=== PATIENT | male | born 1945 | race Caucasian/White ===

== ENCOUNTER 2022-08-01 23:10 | Emergency (ER) | payer MEDICARE, MEDICAID ==
[~2022-08-01] VITALS: Ht 165.1 cm; Wt 68.5 kg
[2022-08-01 23:13] VITALS: BP 138/83
[2022-08-02 01:59] LABS: VENOUS BASE EXCESS 0.4 (-2.0-2.0); VENOUS O2 SATURATION 61.6 % (60.0-80.0); VENOUS PARTIAL PRESSURE CO2 45.2 mmHg (38.0-50.0); VENOUS PARTIAL PRESSURE O2 31.8 mmHg (30.0-50.0); VENOUS PH 7.378 UNITS (7.330-7.430); VENOUS STANDARD HCO3 23.9 MEQ/L; VENOUS TOTAL CO2 27.4 MEQ/L (24.0-28.0)
[2022-08-02 02:18] LABS: BASO # 0.1 10^3/uL (0.0-0.2); BASO % 0.6 % (0.0-1.0); EOS # 0.1 10^3/uL (0.0-0.5); HEMOGLOBIN 14.9 g/dl (13.5-17.5); LYMPH # 1.2 10^3/uL (1.5-5.0); LYMPH % 13.2 % (24.0-44.0); MEAN CORPUSCULAR HEMOGLOBIN 33.1 pg (27.0-33.0); MEAN CORPUSCULAR HGB CONC 34.7 g/dl (32.0-36.5); MEAN CORPUSCULAR VOLUME 95.6 fl (80.0-96.0); MONO # 0.7 10^3/uL (0.0-0.8); MONO % 7.8 % (2.0-8.0); NEUTROPHILS # 7.2 10^3/uL (1.5-8.5); NEUTROPHILS % 77.2 % (36.0-66.0); PLATELET COUNT, AUTOMATED 232 10^3/uL (150-450); WHITE BLOOD COUNT 9.3 10^3/uL (4.0-10.0)
[2022-08-02 02:29] LABS: AMPHETAMINES LEVEL URINE NEGATIVE (NEGATIVE); CANNABINOIDS URINE NEGATIVE (NEGATIVE); METHADONE URINE NEGATIVE (NEGATIVE); OPIATES URINE NEGATIVE (NEGATIVE); PHENCYCLIDINE URINE NEGATIVE (NEGATIVE)
[2022-08-02 02:30] LABS: BARBITURATES URINE NEGATIVE (NEGATIVE); BENZODIAZEPINES URINE NEGATIVE (NEGATIVE); COCAINE METABOLITE URINE NEGATIVE (NEGATIVE)
[2022-08-02 02:31] LABS: ETHYL ALCOHOL (ETHANOL) < 0.003 % (0.000-0.010)
[2022-08-02 02:32] LABS: ACETAMINOPHEN LEVEL < 2.0 UG/ML (10.0-20.0)
[2022-08-02 02:33] LABS: CPK CREATINE PHOSPHOKINASE 528 U/L (46-171); SALICYLATE LEVEL < 3.0 MG/DL (<30)
[2022-08-02 02:36] LABS: OSMOLALITY SERUM 296 MOSM/KG (280-301)
[2022-08-02 02:37] LABS: ALBUMIN 3.7 G/DL (3.2-5.2); ALKALINE PHOSPHATASE 76 U/L (46-116); ALT/SGPT 36 U/L (7.0-40); AST/SGOT 52 U/L (<34); BILIRUBIN,DIRECT 0.2 MG/DL (<0.4); BILIRUBIN,TOTAL 0.9 MG/DL (0.3-1.2); BLOOD UREA NITROGEN 29 MG/DL (9-23); CARBON DIOXIDE LEVEL 28 MMOL/L (20-31); CHLORIDE LEVEL 103 MMOL/L (98-107); CREATININE FOR GFR 0.87 MG/DL (0.70-1.30); GLOMERULAR FILTRATION RATE > 60.0 (>42); GLUCOSE, FASTING 98 MG/DL (74-106); POTASSIUM SERUM 4.6 MMOL/L (3.5-5.1); SODIUM LEVEL 139 MMOL/L (136-145)
[2022-08-02 06:23] LABS: FREE T4 1.19 NG/DL (0.89-1.76)
== END 2022-08-02 06:00 | disposition home or self-care (01) ==
LOC: M ED 23:10
DX: R25.1 Tremor, unspecified (principal); F41.8 Other specified anxiety disorders; J30.89 Other allergic rhinitis

== ENCOUNTER 2022-08-03 07:44 | Inpatient (IN) | payer MEDICARE, MEDICAID ==
[~2022-08-03] VITALS: Ht 175.3 cm; Wt 67.9 kg
[2022-08-03 09:38] LABS: HEMATOCRIT 43.2 % (42.0-52.0); HEMOGLOBIN 14.8 g/dl (13.5-17.5); MEAN CORPUSCULAR HGB CONC 34.3 g/dl (32.0-36.5); MEAN CORPUSCULAR VOLUME 96.2 fl (80.0-96.0); PLATELET COUNT, AUTOMATED 237 10^3/uL (150-450); RED BLOOD COUNT 4.49 10^6/uL (4.30-6.10); WHITE BLOOD COUNT 5.6 10^3/uL (4.0-10.0)
[2022-08-03 09:58] LABS: ETHYL ALCOHOL (ETHANOL) < 0.003 % (0.000-0.010)
[2022-08-03 09:59] LABS: CK-MB VALUE MASS 7.3 NG/ML (<3.6)
[2022-08-03 10:00] LABS: ACETAMINOPHEN LEVEL < 2.0 UG/ML (10.0-20.0); ALBUMIN 3.7 G/DL (3.2-5.2); ALKALINE PHOSPHATASE 73 U/L (46-116); ALT/SGPT 38 U/L (7.0-40); AST/SGOT 52 U/L (<34); BILIRUBIN,TOTAL 0.9 MG/DL (0.3-1.2); BLOOD UREA NITROGEN 25 MG/DL (9-23); CARBON DIOXIDE LEVEL 26 MMOL/L (20-31); CHLORIDE LEVEL 103 MMOL/L (98-107); CREATININE FOR GFR 0.83 MG/DL (0.70-1.30); GLOMERULAR FILTRATION RATE > 60.0 (>42); GLUCOSE, FASTING 102 MG/DL (74-106); POTASSIUM SERUM 4.1 MMOL/L (3.5-5.1); SALICYLATE LEVEL < 3.0 MG/DL (<30); SODIUM LEVEL 137 MMOL/L (136-145); TOTAL PROTEIN 6.9 G/DL (5.7-8.2)
[2022-08-03 10:01] LABS: CPK CREATINE PHOSPHOKINASE 471 U/L (46-171); MB/CK RELATIVE INDEX 1.54 (< OR =4)
[2022-08-03 10:02] LABS: THYROID STIMULATING HORMONE 8.215 uIU/ML (0.55-4.78)
[2022-08-03 10:09] LABS: AMPHETAMINES LEVEL URINE NEGATIVE (NEGATIVE); BARBITURATES URINE NEGATIVE (NEGATIVE); BENZODIAZEPINES URINE NEGATIVE (NEGATIVE); CANNABINOIDS URINE NEGATIVE (NEGATIVE); COCAINE METABOLITE URINE NEGATIVE (NEGATIVE); METHADONE URINE NEGATIVE (NEGATIVE); OPIATES URINE NEGATIVE (NEGATIVE); PHENCYCLIDINE URINE NEGATIVE (NEGATIVE)
[2022-08-03] MEDS ORDERED: NS 1,000 ML IV ONE (10:30)
[2022-08-03] MEDS ORDERED: MAALOX 30 ML SUSP *UDC PO PRN (14:35)
[2022-08-03] MEDS ORDERED: traZODone 50 MG TAB PO PRN (14:35)
[2022-08-03] MEDS ORDERED: MOM 30ML SUSPENSION UDC PO PRN (14:35)
[2022-08-03] MEDS ORDERED: ACETAMINOPHEN TAB 650MG DOSE (2X325MG) PO PRN (14:35)
[2022-08-03] MEDS ORDERED: CLOTRIMAZOLE 1% TOPICAL CREAM 30GM TOP SCH (16:00)
[2022-08-03 17:30] VITALS: BP 112/71
[2022-08-03] MEDS ORDERED: OLANZapine 5 MG TAB PO ONE (21:00)
[2022-08-04 06:17] VITALS: BP 130/82
[2022-08-04] MEDS: OLANZapine ORAL DISINTEGRATING TAB 5MG PO PRN (07:45)
[2022-08-05 06:38] VITALS: BP 128/89
[2022-08-05] MEDS: SERTRALINE HCL 25 MG TABLET PO SCH (09:27)
[2022-08-05] MEDS ORDERED: VITA100093 PO (09:41)
[2022-08-05] MEDS ORDERED: CO Q10CA PO (09:41)
[2022-08-05] MEDS ORDERED: C 50TAB PO (09:41)
[2022-08-05] MEDS ORDERED: VITATAB73 PO (09:41)
[2022-08-05] MEDS ORDERED: HOME MED LIST COMPLETE! XX SCH (09:45)
[2022-08-05 17:46] VITALS: BP 131/78
[2022-08-05] MEDS: OLANZapine 2.5MG TABLET PO SCH ×2 (22:02→22:12)
[2022-08-06] MEDS: SERTRALINE HCL 25 MG TABLET PO SCH (10:12)
[2022-08-06] MEDS: OLANZapine ORAL DISINTEGRATING TAB 5MG PO PRN (16:40)
[2022-08-06 18:03] VITALS: BP 118/74
[2022-08-06] MEDS: OLANZapine 2.5MG TABLET PO SCH (21:38)
[2022-08-07 06:23] VITALS: BP 138/87
[2022-08-07] MEDS: SERTRALINE HCL 50 MG TAB PO SCH (10:27)
[2022-08-07 17:54] VITALS: BP 119/78
[2022-08-07] MEDS: OLANZapine 5 MG TAB PO SCH (21:01)
[2022-08-07] MEDS: traZODone 50 MG TAB PO SCH (21:01)
[2022-08-08 06:25] VITALS: BP 134/74
[2022-08-08] MEDS: SERTRALINE HCL 50 MG TAB PO SCH (08:58)
[2022-08-08 18:11] VITALS: BP 126/69
[2022-08-08] MEDS: OLANZapine 5 MG TAB PO SCH (20:26)
[2022-08-08] MEDS: traZODone 50 MG TAB PO SCH (20:26)
[2022-08-09 06:37] VITALS: BP 141/91
[2022-08-09] MEDS: SERTRALINE HCL 50 MG TAB PO SCH (09:40)
[2022-08-09 18:50] VITALS: BP 150/87
[2022-08-09] MEDS: OLANZapine 5 MG TAB PO SCH (23:19)
[2022-08-09] MEDS: traZODone 50 MG TAB PO SCH (23:19)
[2022-08-10 06:44] VITALS: BP 136/90
[2022-08-10] MEDS: SERTRALINE HCL 50 MG TAB PO SCH (09:30)
[2022-08-10 18:47] VITALS: BP 146/83
[2022-08-10] MEDS: OLANZapine 5 MG TAB PO SCH (23:54)
[2022-08-10] MEDS: traZODone 50 MG TAB PO SCH (23:54)
[2022-08-11 06:17] VITALS: BP 100/59
[2022-08-11] MEDS: SERTRALINE HCL 50 MG TAB PO SCH (09:46)
[2022-08-11 18:59] VITALS: BP 141/93
[2022-08-11] MEDS: OLANZapine 5 MG TAB PO SCH (20:23)
[2022-08-11] MEDS: traZODone 50 MG TAB PO SCH (20:23)
[2022-08-12 06:36] VITALS: BP 114/65
[2022-08-12] MEDS: SERTRALINE HCL 25 MG TABLET PO SCH (09:16)
[2022-08-12 16:55] VITALS: BP 132/76
[2022-08-12] MEDS: OLANZapine 5 MG TAB PO SCH ×2 (20:51→21:00)
[2022-08-12] MEDS: traZODone 50 MG TAB PO SCH ×2 (20:51→21:00)
[2022-08-13 06:49] VITALS: BP 132/88
[2022-08-13] MEDS: SERTRALINE HCL 25 MG TABLET PO SCH (09:00)
[2022-08-13 16:35] VITALS: BP 118/71
[2022-08-13] MEDS: traZODone 50 MG TAB PO SCH (21:22)
[2022-08-13] MEDS: OLANZapine 5 MG TAB PO SCH (21:22)
[2022-08-14 06:30] VITALS: BP 99/53
[2022-08-14] MEDS: SERTRALINE HCL 25 MG TABLET PO SCH (10:02)
[2022-08-14 16:36] VITALS: BP 117/77
[2022-08-14] MEDS: traZODone 50 MG TAB PO SCH (22:02)
[2022-08-14] MEDS: OLANZapine 5 MG TAB PO SCH (22:02)
[2022-08-15 06:37] VITALS: BP 122/72
[2022-08-15] MEDS ORDERED: SERTRALINE HCL 25 MG TABLET PO ONE (11:10)
[2022-08-15 17:42] VITALS: BP 137/90
[2022-08-15] MEDS: OLANZapine 5 MG TAB PO SCH (20:55)
[2022-08-15] MEDS: traZODone 50 MG TAB PO SCH (20:55)
[2022-08-16 06:25] VITALS: BP 137/81
[2022-08-16] MEDS: SERTRALINE HCL 25 MG TABLET PO SCH (08:40)
[2022-08-16 16:24] VITALS: BP 130/76
[2022-08-16] MEDS: traZODone 50 MG TAB PO SCH (21:00)
[2022-08-16] MEDS: risperiDONE 0.5 MG TAB PO SCH (21:11)
[2022-08-17 06:37] VITALS: BP 120/79
[2022-08-17] MEDS: risperiDONE 0.5 MG TAB PO SCH ×2 (08:35→21:05)
[2022-08-17] MEDS: SERTRALINE HCL 25 MG TABLET PO SCH (08:35)
[2022-08-17 16:16] VITALS: BP 139/89
[2022-08-17] MEDS: traZODone 50 MG TAB PO SCH (21:05)
[2022-08-18 06:32] VITALS: BP 126/77
[2022-08-18] MEDS: risperiDONE 0.5 MG TAB PO SCH ×2 (09:27→21:07)
[2022-08-18] MEDS: SERTRALINE HCL 25 MG TABLET PO SCH (09:27)
[2022-08-18 16:00] VITALS: BP 119/74
[2022-08-18] MEDS: traZODone 50 MG TAB PO SCH (21:07)
[2022-08-19 06:57] VITALS: BP 111/64
[2022-08-19] MEDS: risperiDONE 0.5 MG TAB PO SCH (09:18)
[2022-08-19] MEDS: SERTRALINE HCL 25 MG TABLET PO SCH (09:18)
[2022-08-19 17:31] VITALS: BP 137/75
[2022-08-19] MEDS: traZODone 50 MG TAB PO SCH (21:31)
[2022-08-19] MEDS: risperiDONE 1 MG TAB PO SCH (21:31)
[2022-08-20 06:09] VITALS: BP 122/73
[2022-08-20] MEDS: SERTRALINE HCL 25 MG TABLET PO SCH (09:33)
[2022-08-20] MEDS: risperiDONE 0.5 MG TAB PO SCH (09:33)
[2022-08-20 09:39] LABS: APPEARANCE, URINE CLEAR (CLEAR); BACTERIA, URINE AUTO NEGATIVE (NEGATIVE); BILIRUBIN, URINE AUTO NEGATIVE (NEGATIVE); BLOOD, URINE BLOOD NEGATIVE (NEGATIVE); COLOR, URINE YELLOW (YELLOW); GLUCOSE, URINE (UA) AUTO NEGATIVE (NEGATIVE); KETONE, URINE AUTO NEGATIVE (NEGATIVE); LEUKOCYTE ESTERASE, URINE AUTO NEGATIVE (NEGATIVE); MUCUS, URINE SMALL (NEGATIVE); NITRITE, URINE AUTO NEGATIVE (NEGATIVE); PROTEIN, URINE AUTO NEGATIVE (NEGATIVE); RBC, URINE AUTO 0 /HPF (0-3); SPECIFIC GRAVITY URINE AUTO 1.013 (1.002-1.035); SQUAMOUS EPITHELIAL CELL UR AU 0 /HPF (0-6); UROBILINOGEN, URINE AUTO 0.2 mg/dL (0.0-2.0); WBC, URINE AUTO 0 /HPF (0-3)
[2022-08-20 18:24] VITALS: BP 117/71
[2022-08-20] MEDS: traZODone 50 MG TAB PO SCH (21:40)
[2022-08-20] MEDS: risperiDONE 1 MG TAB PO SCH (21:40)
[2022-08-21 06:38] VITALS: BP 116/67
[2022-08-21] MEDS: risperiDONE 0.5 MG TAB PO SCH (10:00)
[2022-08-21] MEDS: SERTRALINE HCL 25 MG TABLET PO SCH (10:00)
[2022-08-21 17:34] VITALS: BP 121/67
[2022-08-21] MEDS: risperiDONE 1 MG TAB PO SCH (19:54)
[2022-08-21] MEDS: traZODone 50 MG TAB PO SCH (19:54)
[2022-08-22 06:46] VITALS: BP 125/76
[2022-08-22] MEDS: SERTRALINE HCL 25 MG TABLET PO SCH (08:54)
[2022-08-22] MEDS: risperiDONE 0.5 MG TAB PO SCH (08:54)
[2022-08-22 18:08] VITALS: BP 154/72
[2022-08-22] MEDS: traZODone 50 MG TAB PO SCH (19:58)
[2022-08-22] MEDS: risperiDONE 1 MG TAB PO SCH (19:59)
[2022-08-23] MEDS: risperiDONE 1 MG TAB PO SCH ×2 (09:04→21:09)
[2022-08-23] MEDS: SERTRALINE HCL 50 MG TAB PO SCH (09:04)
[2022-08-23 17:52] VITALS: BP 133/75
[2022-08-23] MEDS: traZODone 50 MG TAB PO SCH (21:09)
[2022-08-24 06:46] VITALS: BP 107/59
[2022-08-24] MEDS: risperiDONE 1 MG TAB PO SCH ×2 (08:20→19:57)
[2022-08-24] MEDS: SERTRALINE HCL 50 MG TAB PO SCH (08:21)
[2022-08-24 18:22] VITALS: BP 140/90
[2022-08-24] MEDS: traZODone 50 MG TAB PO SCH (19:57)
[2022-08-25 06:02] VITALS: BP 94/56
[2022-08-25] MEDS: risperiDONE 1 MG TAB PO SCH ×2 (09:31→21:18)
[2022-08-25] MEDS: SERTRALINE HCL 50 MG TAB PO SCH (09:31)
[2022-08-25 16:10] VITALS: BP 122/69
[2022-08-25] MEDS: traZODone 50 MG TAB PO SCH (21:17)
[2022-08-26 06:23] VITALS: BP 144/85
[2022-08-26] MEDS: SERTRALINE HCL 50 MG TAB PO SCH (09:00)
[2022-08-26] MEDS: risperiDONE 1 MG TAB PO SCH ×2 (09:00→20:21)
[2022-08-26 16:19] VITALS: BP 100/66
[2022-08-26] MEDS: traZODone 50 MG TAB PO SCH (20:21)
[2022-08-27 06:49] VITALS: BP 114/66
[2022-08-27] MEDS: SERTRALINE HCL 50 MG TAB PO SCH (09:12)
[2022-08-27] MEDS: risperiDONE 1 MG TAB PO SCH ×2 (09:12→21:13)
[2022-08-27 16:16] VITALS: BP 105/60
[2022-08-27] MEDS: traZODone 50 MG TAB PO SCH (21:13)
[2022-08-28 06:31] VITALS: BP 105/67
[2022-08-28] MEDS: SERTRALINE HCL 50 MG TAB PO SCH (08:28)
[2022-08-28] MEDS: risperiDONE 1 MG TAB PO SCH ×2 (08:28→21:13)
[2022-08-28 16:24] VITALS: BP 113/58
[2022-08-28] MEDS: traZODone 50 MG TAB PO SCH (21:11)
[2022-08-29 06:28] VITALS: BP 108/63
[2022-08-29] MEDS: SERTRALINE HCL 50 MG TAB PO SCH (08:34)
[2022-08-29] MEDS: risperiDONE 1 MG TAB PO SCH ×2 (08:34→21:08)
[2022-08-29 19:03] VITALS: BP 128/56
[2022-08-29] MEDS: traZODone 50 MG TAB PO SCH (21:08)
[2022-08-29] MEDS: PILL CUTTER 1 EACH XX PRN (21:08)
[2022-08-30 06:32] VITALS: BP 106/55
[2022-08-30] MEDS: risperiDONE 1 MG TAB PO SCH ×2 (08:42→21:11)
[2022-08-30] MEDS: SERTRALINE HCL 50 MG TAB PO SCH (08:42)
[2022-08-30 18:21] VITALS: BP 112/64
[2022-08-30] MEDS: traZODone 50 MG TAB PO SCH (21:11)
[2022-08-31 06:39] VITALS: BP 128/62
[2022-08-31] MEDS ORDERED: SERTRALINE HCL 50 MG TAB PO SCH (09:00)
[2022-08-31] MEDS: risperiDONE 1 MG TAB PO SCH ×2 (09:03→20:53)
[2022-08-31 16:35] VITALS: BP 105/58
[2022-08-31] MEDS: traZODone 50 MG TAB PO SCH (20:53)
[2022-09-01 06:30] VITALS: BP 104/60
[2022-09-01] MEDS: risperiDONE 1 MG TAB PO SCH ×2 (08:28→21:00)
[2022-09-01] MEDS: SERTRALINE HCL 25 MG TABLET PO SCH (08:28)
[2022-09-01 16:38] VITALS: BP 108/60
[2022-09-01] MEDS: traZODone 50 MG TAB PO SCH (21:00)
[2022-09-02 06:16] VITALS: BP 108/65
[2022-09-02] MEDS: risperiDONE 1 MG TAB PO SCH ×2 (08:49→20:14)
[2022-09-02] MEDS: SERTRALINE HCL 25 MG TABLET PO SCH (08:50)
[2022-09-02] MEDS: PILL CUTTER 1 EACH XX PRN ×2 (08:50→20:14)
[2022-09-02 15:32] VITALS: BP 118/67
[2022-09-02] MEDS: traZODone 50 MG TAB PO SCH (20:14)
[2022-09-03 05:57] VITALS: BP 110/59
[2022-09-03] MEDS ORDERED: SERTRALINE HCL 25 MG TABLET PO SCH (09:00)
[2022-09-03] MEDS: risperiDONE 1 MG TAB PO SCH ×2 (09:11→20:00)
[2022-09-03] MEDS: SERTRALINE HCL 25 MG TABLET PO SCH (09:12)
[2022-09-03] MEDS: PILL CUTTER 1 EACH XX PRN ×2 (09:12→19:59)
[2022-09-03 15:16] VITALS: BP 148/69
[2022-09-03] MEDS: traZODone 50 MG TAB PO SCH (20:00)
[2022-09-04 06:13] VITALS: BP 120/62
[2022-09-04] MEDS: risperiDONE 1 MG TAB PO SCH ×2 (08:45→20:19)
[2022-09-04] MEDS: SERTRALINE HCL 25 MG TABLET PO SCH (08:46)
[2022-09-04 17:54] VITALS: BP 119/65
[2022-09-04] MEDS: traZODone 50 MG TAB PO SCH (20:19)
[2022-09-05 06:59] VITALS: BP 104/66
[2022-09-05] MEDS: SERTRALINE HCL 25 MG TABLET PO SCH (09:16)
[2022-09-05] MEDS: risperiDONE 1 MG TAB PO SCH ×2 (09:16→20:02)
[2022-09-05 18:20] VITALS: BP 111/62
[2022-09-05] MEDS: traZODone 50 MG TAB PO SCH (20:01)
[2022-09-06 06:47] VITALS: BP 108/60
[2022-09-06] MEDS: PILL CUTTER 1 EACH XX PRN (09:27)
[2022-09-06] MEDS: risperiDONE 1 MG TAB PO SCH ×2 (09:27→20:29)
[2022-09-06] MEDS: SERTRALINE HCL 25 MG TABLET PO SCH (09:27)
[2022-09-06 18:34] VITALS: BP 136/76
[2022-09-06] MEDS: traZODone 50 MG TAB PO SCH (20:29)
[2022-09-07 06:02] VITALS: BP 126/71
[2022-09-07] MEDS: SERTRALINE HCL 25 MG TABLET PO SCH (09:12)
[2022-09-07] MEDS: risperiDONE 1 MG TAB PO SCH ×2 (09:13→20:06)
[2022-09-07 18:58] VITALS: BP 148/81
[2022-09-07] MEDS: traZODone 50 MG TAB PO SCH (20:06)
[2022-09-08 06:01] VITALS: BP 103/55
[2022-09-08] MEDS: SERTRALINE HCL 25 MG TABLET PO SCH (08:47)
[2022-09-08] MEDS: risperiDONE 1 MG TAB PO SCH ×2 (08:48→20:12)
[2022-09-08 18:23] VITALS: BP 135/76
[2022-09-08] MEDS: traZODone 50 MG TAB PO SCH (20:12)
[2022-09-09 06:21] VITALS: BP 109/66
[2022-09-09] MEDS: SERTRALINE HCL 25 MG TABLET PO SCH (08:39)
[2022-09-09] MEDS: risperiDONE 1 MG TAB PO SCH ×2 (08:39→20:26)
[2022-09-09 18:51] VITALS: BP 105/70
[2022-09-09] MEDS: traZODone 50 MG TAB PO SCH (20:26)
[2022-09-10] MEDS: SERTRALINE HCL 25 MG TABLET PO SCH (08:14)
[2022-09-10] MEDS: risperiDONE 1 MG TAB PO SCH (08:14)
[2022-09-10 08:28] VITALS: BP 129/95
[2022-09-10 16:16] VITALS: BP 128/64
[2022-09-10] MEDS: risperiDONE 2 MG TAB PO SCH (20:07)
[2022-09-10] MEDS: traZODone 50 MG TAB PO SCH (20:07)
[2022-09-11 06:31] VITALS: BP 112/61
[2022-09-11] MEDS: risperiDONE 1 MG TAB PO SCH (08:09)
[2022-09-11] MEDS: SERTRALINE HCL 25 MG TABLET PO SCH (08:09)
[2022-09-11 16:29] VITALS: BP 112/72
[2022-09-11] MEDS: traZODone 50 MG TAB PO SCH (20:02)
[2022-09-11] MEDS: risperiDONE 2 MG TAB PO SCH (20:02)
[2022-09-12 06:28] VITALS: BP 120/55
[2022-09-12] MEDS: risperiDONE 1 MG TAB PO SCH (08:37)
[2022-09-12] MEDS: SERTRALINE HCL 25 MG TABLET PO SCH (08:37)
[2022-09-12 17:42] VITALS: BP 118/75
[2022-09-12] MEDS: risperiDONE 2 MG TAB PO SCH (20:04)
[2022-09-12] MEDS: traZODone 50 MG TAB PO SCH (20:04)
[2022-09-13 06:01] VITALS: BP 98/64
[2022-09-13] MEDS ORDERED: TRAZ-252 PO (08:14)
[2022-09-13] MEDS ORDERED: SERT25TA21 PO (08:14)
[2022-09-13] MEDS ORDERED: RISP-8 PO (08:14)
[2022-09-13] MEDS ORDERED: RISP-9 PO (08:14)
[2022-09-13] MEDS: SERTRALINE HCL 25 MG TABLET PO SCH (08:55)
[2022-09-13] MEDS: risperiDONE 1 MG TAB PO SCH (08:55)
[2022-09-13] MEDS ORDERED: RISP2TAB32 PO (11:10)
[2022-09-13] MEDS ORDERED: RISP1TAB42 PO (11:10)
[2022-09-13] MEDS ORDERED: SERT-141 PO (11:12)
[2022-09-13] MEDS ORDERED: SERT25TA85 PO (11:12)
== END 2022-09-13 14:04 | disposition home or self-care (01) | DRG 885 ==
LOC: EDBD 07:44 → M ED 07:44 → M ED INP 14:35 → M PSY 15:44
PROVIDERS: ADMIT Psychiatry & Neurology Psychiatry; ATTEND Psychiatry & Neurology Psychiatry
DX: F33.3 Major depressive disorder, recurrent, severe with psychotic symptoms (principal); F22 Delusional disorders; E02 Subclinical iodine-deficiency hypothyroidism; R26.89 Other abnormalities of gait and mobility; K44.9 Diaphragmatic hernia without obstruction or gangrene; Z20.822 Contact with and (suspected) exposure to COVID-19

== ENCOUNTER → 2022-10-08 | Outpatient (REF) | payer MEDICARE, MEDICAID ==
[~2022-10-08] MED LIST: C 50TAB PO; CO Q10CA PO; RISP-8 PO; RISP-9 PO; RISP1TAB42 PO; RISP2TAB32 PO; SERT-141 PO; SERT25TA21 PO; SERT25TA85 PO; TRAZ-252 PO; VITA100093 PO; VITATAB73 PO
[2022-10-08 13:29] LABS: HEMOGLOBIN A1c 5.2 % (4.0-6.0)
[2022-10-08 13:33] LABS: CHOLESTEROL RISK RATIO 3.64 (<5); HDL CHOLESTEROL 59.5 MG/DL (>40); LDL CHOLESTEROL 141.5 MG/DL (<100); NON-HDL-C 157.5 MG/DL
[2022-10-08 13:35] LABS: THYROID STIMULATING HORMONE 2.216 uIU/ML (0.55-4.78)
== END ==
LOC: M LAB REF 12:21
PROVIDERS: ATTEND Nurse Practitioner Family
DX: E66.3 Overweight (principal); Z68.25 Body mass index [BMI] 25.0-25.9, adult; E03.9 Hypothyroidism, unspecified; Z79.899 Other long term (current) drug therapy

== ENCOUNTER 2022-11-22 15:10 | Emergency (ER) | payer MEDICARE, MEDICAID ==
[~2022-11-22] VITALS: Ht 167.6 cm; Wt 65.5 kg
[2022-11-22 15:33] VITALS: BP 120/73; TEMP 96.7; O2SAT 100
[2022-11-22] MEDS ORDERED: SERT50TA29 PO (20:08)
[2022-11-22] MEDS ORDERED: RISP-8 PO (20:08)
[2022-11-22] MEDS ORDERED: SERT25TA21 PO (20:08)
[2022-11-22] MEDS ORDERED: RISP-9 PO (20:08)
[2022-11-22] MEDS ORDERED: HOME MED LIST COMPLETE! XX SCH (20:10)
[2022-11-22 20:29] LABS: HEMATOCRIT 47.5 % (42.0-52.0); HEMOGLOBIN 16.2 g/dl (13.5-17.5); MEAN CORPUSCULAR HEMOGLOBIN 31.8 pg (27.0-33.0); MEAN CORPUSCULAR HGB CONC 34.1 g/dl (32.0-36.5); MEAN CORPUSCULAR VOLUME 93.1 fl (80.0-96.0); PLATELET COUNT, AUTOMATED 227 10^3/uL (150-450); WHITE BLOOD COUNT 7.3 10^3/uL (4.0-10.0)
[2022-11-22 20:52] LABS: AMPHETAMINES LEVEL URINE NEGATIVE (NEGATIVE); BARBITURATES URINE NEGATIVE (NEGATIVE); BENZODIAZEPINES URINE NEGATIVE (NEGATIVE); CANNABINOIDS URINE NEGATIVE (NEGATIVE); COCAINE METABOLITE URINE NEGATIVE (NEGATIVE); METHADONE URINE NEGATIVE (NEGATIVE); OPIATES URINE NEGATIVE (NEGATIVE); PHENCYCLIDINE URINE NEGATIVE (NEGATIVE)
[2022-11-22 21:08] LABS: ETHYL ALCOHOL (ETHANOL) < 0.003 % (0.000-0.010)
[2022-11-22 21:09] LABS: ACETAMINOPHEN LEVEL < 2.0 UG/ML (10.0-20.0); SALICYLATE LEVEL < 3.0 MG/DL (<30)
[2022-11-22 21:10] LABS: ALBUMIN 4.3 G/DL (3.2-5.2); ALKALINE PHOSPHATASE 96 U/L (46-116); ALT/SGPT 17 U/L (7.0-40); AST/SGOT 12 U/L (<34); BILIRUBIN,DIRECT 0.2 MG/DL (<0.4); BILIRUBIN,TOTAL 0.9 MG/DL (0.3-1.2); BLOOD UREA NITROGEN 22 MG/DL (9-23); CALCIUM LEVEL 9.5 MG/DL (8.3-10.6); CARBON DIOXIDE LEVEL 28 MMOL/L (20-31); CHLORIDE LEVEL 100 MMOL/L (98-107); CREATININE FOR GFR 1.01 MG/DL (0.70-1.30); GLOMERULAR FILTRATION RATE > 60.0 (>42); GLUCOSE, FASTING 94 MG/DL (74-106); POTASSIUM SERUM 4.4 MMOL/L (3.5-5.1); SODIUM LEVEL 137 MMOL/L (136-145); TOTAL PROTEIN 7.8 G/DL (5.7-8.2)
[2022-11-22 21:12] LABS: FREE T4 1.26 NG/DL (0.89-1.76); THYROID STIMULATING HORMONE 2.025 uIU/ML (0.55-4.78)
== END 2022-11-23 00:03 | disposition home or self-care (01) ==
LOC: M ED 15:10
DX: G25.0 Essential tremor (principal); F32.A Depression, unspecified; Z79.899 Other long term (current) drug therapy

== ENCOUNTER → 2022-11-26 | Outpatient (REF) | payer MEDICARE, MEDICAID ==
[~2022-11-26] MED LIST changes: +SERT50TA29 PO
[2022-11-26 18:05] LABS: FOLATE > 24.0 NG/ML (>5.4); VITAMIN B12 LEVEL 621 PG/ML (211-911)
== END ==
LOC: M LAB REF 16:55
PROVIDERS: ATTEND Nurse Practitioner Family
DX: R25.1 Tremor, unspecified (principal)

== ENCOUNTER 2022-12-18 18:32 | Inpatient (IN) | payer MEDICARE, MEDICAID ==
[~2022-12-18] VITALS: Ht 175.3 cm; Wt 64.2 kg
[2022-12-18] MEDS ORDERED: TRAZ-252 (18:40)
[2022-12-18 19:53] LABS: HEMATOCRIT 42.7 % (42.0-52.0); HEMOGLOBIN 14.8 g/dl (13.5-17.5); MEAN CORPUSCULAR HEMOGLOBIN 31.9 pg (27.0-33.0); MEAN CORPUSCULAR HGB CONC 34.7 g/dl (32.0-36.5); PLATELET COUNT, AUTOMATED 219 10^3/uL (150-450); RED BLOOD COUNT 4.64 10^6/uL (4.30-6.10); WHITE BLOOD COUNT 5.9 10^3/uL (4.0-10.0)
[2022-12-18 20:22] LABS: AMPHETAMINES LEVEL URINE NEGATIVE (NEGATIVE); BARBITURATES URINE NEGATIVE (NEGATIVE); CANNABINOIDS URINE NEGATIVE (NEGATIVE); COCAINE METABOLITE URINE NEGATIVE (NEGATIVE); METHADONE URINE NEGATIVE (NEGATIVE); PHENCYCLIDINE URINE NEGATIVE (NEGATIVE)
[2022-12-18 20:23] LABS: BENZODIAZEPINES URINE NEGATIVE (NEGATIVE); OPIATES URINE NEGATIVE (NEGATIVE)
[2022-12-18 20:24] LABS: ETHYL ALCOHOL (ETHANOL) < 0.003 % (0.000-0.010)
[2022-12-18 20:26] LABS: ACETAMINOPHEN LEVEL < 2.0 UG/ML (10.0-20.0); ALKALINE PHOSPHATASE 77 U/L (46-116); ALT/SGPT < 9 U/L (7.0-40); AST/SGOT 17 U/L (<34); BILIRUBIN,DIRECT 0.2 MG/DL (<0.4); BILIRUBIN,TOTAL 0.8 MG/DL (0.3-1.2); BLOOD UREA NITROGEN 26 MG/DL (9-23); CARBON DIOXIDE LEVEL 25 MMOL/L (20-31); CHLORIDE LEVEL 105 MMOL/L (98-107); CREATININE FOR GFR 0.93 MG/DL (0.70-1.30); GLOMERULAR FILTRATION RATE > 60.0 (>42); GLUCOSE, FASTING 87 MG/DL (74-106); POTASSIUM SERUM 4.3 MMOL/L (3.5-5.1); SALICYLATE LEVEL < 3.0 MG/DL (<30); SODIUM LEVEL 139 MMOL/L (136-145); TOTAL PROTEIN 6.9 G/DL (5.7-8.2)
[2022-12-18 20:28] LABS: THYROID STIMULATING HORMONE 1.932 uIU/ML (0.55-4.78)
[2022-12-18] MEDS ORDERED: TRAZ-186 PO (22:41)
[2022-12-18] MEDS ORDERED: HOME MED LIST COMPLETE! XX SCH (22:45)
[2022-12-18] MEDS ORDERED: MOM 30ML SUSPENSION UDC PO PRN (22:50)
[2022-12-18] MEDS ORDERED: MAALOX 30 ML SUSP *UDC PO PRN (22:50)
[2022-12-18] MEDS ORDERED: traZODone 50 MG TAB PO PRN (22:50)
[2022-12-19 01:21] VITALS: BP 136/83; TEMP 97.3; O2SAT 97
[2022-12-19 06:28] VITALS: BP 95/66; TEMP 97.7; O2SAT 97
[2022-12-19] MEDS: risperiDONE 1 MG TAB PO SCH (08:59)
[2022-12-19] MEDS: SERTRALINE HCL 50 MG TAB PO SCH (08:59)
[2022-12-19] MEDS: SERTRALINE HCL 25 MG TABLET PO SCH (09:00)
[2022-12-19 18:20] VITALS: BP 131/79; TEMP 96.3; O2SAT 97
[2022-12-19] MEDS: MIRTAZAPINE 7.5MG PER 1/2 TABLET PO SCH (20:51)
[2022-12-19] MEDS: risperiDONE 2 MG TAB PO SCH (20:51)
[2022-12-20 05:59] VITALS: BP 112/76; TEMP 97.1; O2SAT 99
[2022-12-20] MEDS: SERTRALINE HCL 25 MG TABLET PO SCH (09:44)
[2022-12-20] MEDS: risperiDONE 1 MG TAB PO SCH (09:45)
[2022-12-20] MEDS: SERTRALINE HCL 50 MG TAB PO SCH (09:45)
[2022-12-20 17:24] VITALS: BP 98/57; TEMP 98; O2SAT 97
[2022-12-20] MEDS: MIRTAZAPINE 7.5MG PER 1/2 TABLET PO SCH (20:07)
[2022-12-20] MEDS: risperiDONE 2 MG TAB PO SCH (20:07)
[2022-12-21 06:43] VITALS: BP 134/83; TEMP 97.7; O2SAT 96
[2022-12-21] MEDS: SERTRALINE HCL 50 MG TAB PO SCH (08:54)
[2022-12-21] MEDS: SERTRALINE HCL 25 MG TABLET PO SCH (08:54)
[2022-12-21] MEDS: risperiDONE 1 MG TAB PO SCH (08:54)
[2022-12-21 16:24] VITALS: BP 148/93; TEMP 97.3; O2SAT 97
[2022-12-21] MEDS: MIRTAZAPINE 7.5MG PER 1/2 TABLET PO SCH (21:00)
[2022-12-21] MEDS: risperiDONE 2 MG TAB PO SCH (21:50)
[2022-12-22 06:48] VITALS: BP 136/75; TEMP 97.8; O2SAT 95
[2022-12-22] MEDS: SERTRALINE HCL 50 MG TAB PO SCH (12:02)
[2022-12-22] MEDS: SERTRALINE HCL 25 MG TABLET PO SCH (12:02)
[2022-12-22] MEDS: risperiDONE 1 MG TAB PO SCH (12:02)
[2022-12-22 18:05] VITALS: BP 116/65; TEMP 98; O2SAT 96
[2022-12-22] MEDS: MIRTAZAPINE 7.5MG PER 1/2 TABLET PO SCH (21:00)
[2022-12-22] MEDS: risperiDONE 2 MG TAB PO SCH (21:15)
[2022-12-23 06:49] VITALS: BP 125/79; TEMP 98.6; O2SAT 98
[2022-12-23] MEDS: SERTRALINE HCL 25 MG TABLET PO SCH (08:56)
[2022-12-23] MEDS: SERTRALINE HCL 50 MG TAB PO SCH (08:56)
[2022-12-23] MEDS: risperiDONE 1 MG TAB PO SCH (08:56)
[2022-12-23 18:20] VITALS: BP 128/77; TEMP 97; O2SAT 100
[2022-12-23] MEDS: MIRTAZAPINE 7.5MG PER 1/2 TABLET PO SCH (21:00)
[2022-12-23] MEDS: risperiDONE 2 MG TAB PO SCH (21:08)
[2022-12-24 06:33] VITALS: BP 102/60; TEMP 98.1; O2SAT 95
[2022-12-24] MEDS: SERTRALINE HCL 50 MG TAB PO SCH (09:58)
[2022-12-24] MEDS: SERTRALINE HCL 25 MG TABLET PO SCH (09:58)
[2022-12-24] MEDS: risperiDONE 1 MG TAB PO SCH (09:58)
[2022-12-24 18:52] VITALS: BP 124/74; TEMP 98
[2022-12-24] MEDS: risperiDONE 2 MG TAB PO SCH (20:00)
[2022-12-24] MEDS: MIRTAZAPINE 7.5MG PER 1/2 TABLET PO SCH (20:05)
[2022-12-25 06:26] VITALS: BP 112/65; TEMP 97.1; O2SAT 100
[2022-12-25] MEDS: SERTRALINE 100 MG TAB PO SCH (17:02)
[2022-12-25] MEDS: risperiDONE 2 MG TAB PO SCH ×2 (17:03→21:00)
[2022-12-25 18:31] VITALS: BP 140/91; TEMP 96.7; O2SAT 97
[2022-12-25] MEDS: MIRTAZAPINE 7.5MG PER 1/2 TABLET PO SCH (21:00)
[2022-12-26 06:49] VITALS: BP 120/75; TEMP 98.1; O2SAT 95
[2022-12-26] MEDS: SERTRALINE 100 MG TAB PO SCH (08:59)
[2022-12-26] MEDS: risperiDONE 2 MG TAB PO SCH ×2 (08:59→20:47)
[2022-12-26 18:16] VITALS: BP 124/79; TEMP 98
[2022-12-26] MEDS: MIRTAZAPINE 7.5MG PER 1/2 TABLET PO SCH (20:53)
[2022-12-27 06:41] VITALS: BP 144/69; TEMP 98.2; O2SAT 96
[2022-12-27] MEDS: risperiDONE 2 MG TAB PO SCH ×2 (08:21→21:00)
[2022-12-27] MEDS: SERTRALINE 100 MG TAB PO SCH (08:22)
[2022-12-27 17:40] VITALS: BP 133/84; TEMP 97.5; O2SAT 100
[2022-12-27] MEDS: MIRTAZAPINE 7.5MG PER 1/2 TABLET PO SCH (21:00)
[2022-12-28 06:13] VITALS: BP 147/92; TEMP 97.5; O2SAT 97
[2022-12-28] MEDS: risperiDONE 2 MG TAB PO SCH ×2 (09:00→21:00)
[2022-12-28] MEDS: SERTRALINE 100 MG TAB PO SCH (09:00)
[2022-12-28 18:16] VITALS: BP 128/79; TEMP 98.4; O2SAT 96
[2022-12-28] MEDS: MIRTAZAPINE 7.5MG PER 1/2 TABLET PO SCH (21:00)
[2022-12-29 06:17] VITALS: BP 111/70; TEMP 98.6; O2SAT 96
[2022-12-29] MEDS: risperiDONE 2 MG TAB PO SCH ×2 (12:26→21:29)
[2022-12-29] MEDS: SERTRALINE 100 MG TAB PO SCH (12:26)
[2022-12-29 18:00] VITALS: BP 119/77; TEMP 97.2; O2SAT 96
[2022-12-29] MEDS: MIRTAZAPINE 7.5MG PER 1/2 TABLET PO SCH (21:00)
[2022-12-30 06:04] VITALS: BP 122/77; TEMP 97.6; O2SAT 96
[2022-12-30] MEDS: SERTRALINE 100 MG TAB PO SCH (10:05)
[2022-12-30] MEDS: risperiDONE 2 MG TAB PO SCH ×2 (10:05→21:09)
[2022-12-30 18:08] VITALS: BP 123/85; TEMP 97.5; O2SAT 96
[2022-12-30] MEDS: MIRTAZAPINE 7.5MG PER 1/2 TABLET PO SCH (21:00)
[2022-12-31 06:26] VITALS: BP 142/79; TEMP 96.9; O2SAT 95
[2022-12-31] MEDS: risperiDONE 2 MG TAB PO SCH ×2 (09:51→22:03)
[2022-12-31] MEDS: SERTRALINE 100 MG TAB PO SCH (09:51)
[2022-12-31 16:30] VITALS: BP 111/72; TEMP 97.7; O2SAT 96
[2022-12-31] MEDS: MIRTAZAPINE 7.5MG PER 1/2 TABLET PO SCH (21:00)
[2023-01-01 06:33] VITALS: BP 114/77; TEMP 98.2; O2SAT 95
[2023-01-01] MEDS: SERTRALINE 100 MG TAB PO SCH (09:52)
[2023-01-01] MEDS: risperiDONE 2 MG TAB PO SCH ×2 (09:52→22:30)
[2023-01-01 17:53] VITALS: BP 114/75; TEMP 98.5; O2SAT 95
[2023-01-01] MEDS: MIRTAZAPINE 7.5MG PER 1/2 TABLET PO SCH (21:00)
[2023-01-02] MEDS: risperiDONE 2 MG TAB PO SCH ×2 (09:58→20:36)
[2023-01-02] MEDS: SERTRALINE 100 MG TAB PO SCH (09:58)
[2023-01-02 18:14] VITALS: BP 116/71; TEMP 96.4; O2SAT 99
[2023-01-02] MEDS: MIRTAZAPINE 7.5MG PER 1/2 TABLET PO SCH (21:00)
[2023-01-03] MEDS: risperiDONE 2 MG TAB PO SCH ×2 (10:26→21:17)
[2023-01-03] MEDS: SERTRALINE 100 MG TAB PO SCH (10:27)
[2023-01-03 16:12] VITALS: BP 117/78; TEMP 97.7; O2SAT 98
[2023-01-03] MEDS: MIRTAZAPINE 7.5MG PER 1/2 TABLET PO SCH (21:00)
[2023-01-04] MEDS: risperiDONE 2 MG TAB PO SCH ×2 (09:45→21:24)
[2023-01-04] MEDS: SERTRALINE 100 MG TAB PO SCH (09:45)
[2023-01-04 16:47] VITALS: BP 106/66; TEMP 98.2; O2SAT 96
[2023-01-04] MEDS: MIRTAZAPINE 7.5MG PER 1/2 TABLET PO SCH (21:00)
[2023-01-05 06:34] VITALS: BP 91/50; TEMP 98.4; O2SAT 94
[2023-01-05] MEDS: risperiDONE 2 MG TAB PO SCH ×2 (10:08→20:56)
[2023-01-05] MEDS: SERTRALINE 100 MG TAB PO SCH (10:08)
[2023-01-05 18:00] VITALS: BP 133/79; TEMP 97.4
[2023-01-05] MEDS: MIRTAZAPINE 7.5MG PER 1/2 TABLET PO SCH (20:59)
[2023-01-06 06:18] VITALS: BP 104/66; TEMP 97; O2SAT 97
[2023-01-06] MEDS: SERTRALINE 100 MG TAB PO SCH (09:52)
[2023-01-06] MEDS: risperiDONE 2 MG TAB PO SCH ×2 (09:52→20:45)
[2023-01-06 17:35] VITALS: BP 125/72; TEMP 96.9; O2SAT 98
[2023-01-06] MEDS: MIRTAZAPINE 7.5MG PER 1/2 TABLET PO SCH (20:44)
[2023-01-07 06:21] VITALS: BP 105/68; TEMP 98.6; O2SAT 96
[2023-01-07] MEDS: risperiDONE 2 MG TAB PO SCH ×2 (09:46→20:49)
[2023-01-07] MEDS: SERTRALINE 100 MG TAB PO SCH (09:46)
[2023-01-07 18:22] VITALS: BP 131/68; TEMP 96.3; O2SAT 96
[2023-01-07] MEDS: MIRTAZAPINE 7.5MG PER 1/2 TABLET PO SCH (20:36)
[2023-01-08 06:21] VITALS: BP 109/69; TEMP 97.6; O2SAT 96
[2023-01-08 09:44] LABS: BLOOD UREA NITROGEN 16 MG/DL (9-23); CARBON DIOXIDE LEVEL 26 MMOL/L (20-31); CHLORIDE LEVEL 103 MMOL/L (98-107); CREATININE FOR GFR 0.99 MG/DL (0.70-1.30); GLOMERULAR FILTRATION RATE > 60.0 (>42); GLUCOSE, FASTING 86 MG/DL (74-106); POTASSIUM SERUM 3.8 MMOL/L (3.5-5.1); SODIUM LEVEL 139 MMOL/L (136-145)
[2023-01-08] MEDS: SERTRALINE 100 MG TAB PO SCH (09:52)
[2023-01-08] MEDS: risperiDONE 2 MG TAB PO SCH ×2 (09:52→21:11)
[2023-01-08 17:47] VITALS: BP 101/64; TEMP 97.9; O2SAT 96
[2023-01-08] MEDS: MIRTAZAPINE 7.5MG PER 1/2 TABLET PO SCH (21:00)
[2023-01-09 06:48] VITALS: BP 122/66; TEMP 98.5; O2SAT 94
[2023-01-09] MEDS: risperiDONE 2 MG TAB PO SCH ×2 (09:18→20:29)
[2023-01-09] MEDS: SERTRALINE 100 MG TAB PO SCH (09:18)
[2023-01-09 17:58] VITALS: BP 97/60; TEMP 97.9; O2SAT 98
[2023-01-09] MEDS: MIRTAZAPINE 7.5MG PER 1/2 TABLET PO SCH (20:30)
[2023-01-10] MEDS: risperiDONE 2 MG TAB PO SCH ×2 (09:40→21:22)
[2023-01-10] MEDS: SERTRALINE 100 MG TAB PO SCH (09:40)
[2023-01-10 17:24] VITALS: BP 122/72; TEMP 98.5
[2023-01-10] MEDS: MIRTAZAPINE 7.5MG PER 1/2 TABLET PO SCH (21:00)
[2023-01-11 06:00] VITALS: BP 100/57; TEMP 97; O2SAT 94
[2023-01-11] MEDS: SERTRALINE 100 MG TAB PO SCH (08:37)
[2023-01-11] MEDS: risperiDONE 2 MG TAB PO SCH ×2 (08:37→20:18)
[2023-01-11 18:14] VITALS: BP 116/67; TEMP 96.9; O2SAT 100
[2023-01-11] MEDS: MIRTAZAPINE 7.5MG PER 1/2 TABLET PO SCH (20:18)
[2023-01-12 06:17] VITALS: BP 106/61; TEMP 99; O2SAT 94
[2023-01-12] MEDS: risperiDONE 2 MG TAB PO SCH ×2 (09:00→21:17)
[2023-01-12] MEDS: SERTRALINE 100 MG TAB PO SCH (09:00)
[2023-01-12 18:00] VITALS: BP 109/60; TEMP 98.8; O2SAT 99
[2023-01-12] MEDS: MIRTAZAPINE 7.5MG PER 1/2 TABLET PO SCH (20:54)
[2023-01-13 05:42] VITALS: BP 100/60; TEMP 98.5; O2SAT 93
[2023-01-13] MEDS: risperiDONE 2 MG TAB PO SCH ×2 (10:05→20:59)
[2023-01-13] MEDS: SERTRALINE 100 MG TAB PO SCH (10:05)
[2023-01-13] MEDS: TUBERCULIN PPD 5 UNITS/0.1 ML ID ONE ×2 (12:00→17:13)
[2023-01-13 17:35] VITALS: BP 120/69; TEMP 97.9; O2SAT 94
[2023-01-13] MEDS: MIRTAZAPINE 7.5MG PER 1/2 TABLET PO SCH (20:59)
[2023-01-14 06:32] VITALS: BP 109/63; TEMP 98.6; O2SAT 93
[2023-01-14] MEDS: risperiDONE 2 MG TAB PO SCH ×2 (09:51→23:31)
[2023-01-14] MEDS: SERTRALINE 100 MG TAB PO SCH (09:51)
[2023-01-14 16:08] VITALS: BP 120/76; TEMP 98.1; O2SAT 96
[2023-01-14] MEDS: MIRTAZAPINE 7.5MG PER 1/2 TABLET PO SCH (23:31)
[2023-01-15 06:31] VITALS: BP 95/61; TEMP 98.5; O2SAT 95
[2023-01-15] MEDS: SERTRALINE 100 MG TAB PO SCH (09:55)
[2023-01-15] MEDS: risperiDONE 2 MG TAB PO SCH ×2 (09:55→20:29)
[2023-01-15] MEDS ORDERED: PPD DOCUMENTATION ENTRY MISC XX ONE (12:00)
[2023-01-15 16:30] VITALS: BP 101/68; TEMP 97.2; O2SAT 94
[2023-01-15] MEDS: MIRTAZAPINE 7.5MG PER 1/2 TABLET PO SCH (20:29)
[2023-01-16 06:24] VITALS: BP 111/60; TEMP 98.1; O2SAT 95
[2023-01-16] MEDS: SERTRALINE 100 MG TAB PO SCH (09:10)
[2023-01-16] MEDS: risperiDONE 2 MG TAB PO SCH ×2 (09:10→20:05)
[2023-01-16 17:21] VITALS: BP 104/58; TEMP 97.3; O2SAT 97
[2023-01-16] MEDS: MIRTAZAPINE 7.5MG PER 1/2 TABLET PO SCH (20:05)
[2023-01-17 06:09] VITALS: BP 94/55; TEMP 98.2; O2SAT 95
[2023-01-17] MEDS: SERTRALINE 100 MG TAB PO SCH (09:56)
[2023-01-17] MEDS: risperiDONE 2 MG TAB PO SCH ×2 (09:56→20:56)
[2023-01-17 16:23] VITALS: BP 116/70; TEMP 98.9; O2SAT 97
[2023-01-17] MEDS: MIRTAZAPINE 7.5MG PER 1/2 TABLET PO SCH (20:56)
[2023-01-18 06:34] VITALS: BP 98/57; TEMP 98.4; O2SAT 95
[2023-01-18] MEDS: risperiDONE 2 MG TAB PO SCH ×2 (09:54→21:20)
[2023-01-18] MEDS: SERTRALINE 100 MG TAB PO SCH (09:54)
[2023-01-18 16:09] VITALS: BP 108/69; TEMP 97.7; O2SAT 98
[2023-01-18] MEDS: MIRTAZAPINE 7.5MG PER 1/2 TABLET PO SCH (21:20)
[2023-01-19 06:29] VITALS: BP 97/53; TEMP 98.4; O2SAT 95
[2023-01-19] MEDS: SERTRALINE 100 MG TAB PO SCH (09:40)
[2023-01-19] MEDS: risperiDONE 2 MG TAB PO SCH ×2 (09:40→19:58)
[2023-01-19] MEDS: ACETAMINOPHEN TAB 650MG DOSE (2X325MG) PO PRN (09:40)
[2023-01-19 16:08] VITALS: BP 110/64; TEMP 97.6; O2SAT 98
[2023-01-19] MEDS: MIRTAZAPINE 7.5MG PER 1/2 TABLET PO SCH (19:58)
[2023-01-20 06:12] VITALS: BP 94/52; TEMP 98.2; O2SAT 94
[2023-01-20] MEDS: risperiDONE 2 MG TAB PO SCH ×2 (08:52→20:16)
[2023-01-20] MEDS: SERTRALINE 100 MG TAB PO SCH (08:52)
[2023-01-20 18:00] VITALS: BP 100/70; TEMP 96.7; O2SAT 100
[2023-01-20] MEDS: MIRTAZAPINE 7.5MG PER 1/2 TABLET PO SCH (20:16)
[2023-01-21 06:24] VITALS: BP 103/61; TEMP 97.8; O2SAT 96
[2023-01-21] MEDS: ACETAMINOPHEN TAB 650MG DOSE (2X325MG) PO PRN (08:50)
[2023-01-21] MEDS: risperiDONE 2 MG TAB PO SCH (08:50)
[2023-01-21 13:20] VITALS: BP 136/90; O2SAT 100
[2023-01-21] MEDS ORDERED: MIRT-10 PO (13:54)
[2023-01-21] MEDS ORDERED: RISP-9 PO ×2 (13:54)
[2023-01-21 14:26] LABS: BASO # 0.1 10^3/uL (0.0-0.2); BASO % 0.9 % (0.0-1.0); EOS # 0.3 10^3/uL (0.0-0.5); EOS % 3.9 % (0.0-3.0); HEMATOCRIT 39.5 % (42.0-52.0); HEMOGLOBIN 13.3 g/dl (13.5-17.5); LYMPH # 1.7 10^3/uL (1.5-5.0); LYMPH % 22.9 % (24.0-44.0); MEAN CORPUSCULAR HEMOGLOBIN 31.4 pg (27.0-33.0); MEAN CORPUSCULAR HGB CONC 33.7 g/dl (32.0-36.5); MEAN CORPUSCULAR VOLUME 93.4 fl (80.0-96.0); MONO # 0.8 10^3/uL (0.0-0.8); MONO % 10.1 % (2.0-8.0); NEUTROPHILS # 4.6 10^3/uL (1.5-8.5); NEUTROPHILS % 61.5 % (36.0-66.0); PLATELET COUNT, AUTOMATED 223 10^3/uL (150-450); RED BLOOD COUNT 4.23 10^6/uL (4.30-6.10); WHITE BLOOD COUNT 7.5 10^3/uL (4.0-10.0)
[2023-01-21 14:35] LABS: ALBUMIN 2.8 G/DL (3.2-5.2); ALKALINE PHOSPHATASE 86 U/L (46-116); ALT/SGPT 11 U/L (7.0-40); AST/SGOT 15 U/L (<34); BILIRUBIN,TOTAL 0.5 MG/DL (0.3-1.2); BLOOD UREA NITROGEN 24 MG/DL (9-23); CALCIUM LEVEL 8.5 MG/DL (8.3-10.6); CARBON DIOXIDE LEVEL 22 MMOL/L (20-31); CHLORIDE LEVEL 106 MMOL/L (98-107); CREATININE FOR GFR 0.89 MG/DL (0.70-1.30); GLOMERULAR FILTRATION RATE > 60.0 (>42); GLUCOSE, FASTING 91 MG/DL (74-106); POTASSIUM SERUM 4.3 MMOL/L (3.5-5.1); SODIUM LEVEL 137 MMOL/L (136-145); TOTAL PROTEIN 6.3 G/DL (5.7-8.2)
[2023-01-21 14:38] LABS: PROLACTIN 27.71 NG/ML (2.1-17.7)
[2023-01-21] MEDS ORDERED: MIRTAZAPINE 7.5MG PER 1/2 TABLET PO SCH (21:00)
[2023-01-21] MEDS ORDERED: MIRTAZAPINE 15 MG TAB PO SCH (21:00)
[2023-01-23] MEDS: SERTRALINE HCL 50 MG TAB PO SCH (09:00)
[2023-01-23] MEDS ORDERED: ACET1TAB55 PO (11:49)
[2023-01-23] MEDS ORDERED: MIDO5TA PO (11:49)
[2023-01-23 13:44] VITALS: BP 108/62; TEMP 97.1; O2SAT 100
[2023-01-23] MEDS ORDERED: MAALOX 30 ML SUSP *UDC PO PRN (15:40)
[2023-01-23] MEDS ORDERED: traZODone 50 MG TAB PO PRN (15:40)
[2023-01-23] MEDS ORDERED: MOM 30ML SUSPENSION UDC PO PRN (15:40)
[2023-01-23] MEDS ORDERED: ACETAMINOPHEN TAB 650MG DOSE (2X325MG) PO PRN (15:40)
[2023-01-23] MEDS: MIDODRINE 5 MG TAB PO SCH (16:30)
[2023-01-23] MEDS ORDERED: propofoL 200 MG/20 ML VIAL As Ordered ONE (18:39)
[2023-01-23] MEDS ORDERED: GLYCOPYRROLATE INJ 0.2 MG/ML 2 ML VIAL As Ordered ONE (18:40)
[2023-01-23] MEDS ORDERED: MIRTAZAPINE 7.5MG PER 1/2 TABLET PO SCH (21:00)
[2023-01-23] MEDS: risperiDONE 2 MG TAB PO SCH (21:24)
[2023-01-24 06:57] VITALS: TEMP 96.9; O2SAT 97
[2023-01-24] MEDS: risperiDONE 2 MG TAB PO SCH (09:02)
[2023-01-24] MEDS: SERTRALINE HCL 50 MG TAB PO SCH (09:02)
[2023-01-24] MEDS: MIDODRINE 5 MG TAB PO SCH (09:02)
== END 2023-01-24 13:33 | disposition short-term general hospital (02) | DRG 885 ==
LOC: M ED 18:32 → M ED INP 22:49 → M PSY 12-19 00:21 → UNDODISIN 01-21 13:53 → M PSY 01-23 13:11
PROVIDERS: ADMIT Student in an Organized Health Care Education/Training Program; ATTEND Student in an Organized Health Care Education/Training Program
DX: F32.3 Major depressive disorder, single episode, severe with psychotic features (principal); R19.7 Diarrhea, unspecified; F22 Delusional disorders; E02 Subclinical iodine-deficiency hypothyroidism; J30.1 Allergic rhinitis due to pollen; Z79.899 Other long term (current) drug therapy; K40.90 Unilateral inguinal hernia, without obstruction or gangrene, not specified as recurrent; G47.00 Insomnia, unspecified; Z60.2 Problems related to living alone; Z63.8 Other specified problems related to primary support group; Z91.148 Patient's other noncompliance with medication regimen for other reason; I95.1 Orthostatic hypotension; S01.01XA Laceration without foreign body of scalp, initial encounter; W18.30XA Fall on same level, unspecified, initial encounter; Y92.238 Other place in hospital as the place of occurrence of the external cause; Y93.89 Activity, other specified; Y99.8 Other external cause status

== ENCOUNTER 2023-01-21 13:51 | Inpatient (IN) | payer MEDICARE, MEDICAID ==
[~2023-01-21] VITALS: Ht 175.3 cm; Wt 64.2 kg
[~2023-01-21 13:51] MED LIST changes: +TRAZ-186 PO; +TRAZ-252
[2023-01-21] MEDS ORDERED: MIRT-10 PO (13:54)
[2023-01-21] MEDS ORDERED: RISP-9 PO ×2 (13:54)
[2023-01-21] MEDS ORDERED: ACETAMINOPHEN TAB 650MG DOSE (2X325MG) PO PRN (13:55)
[2023-01-21] MEDS: NS 1,000 ML IV SCH (14:10)
[2023-01-21 14:20] VITALS: BP 139/82; TEMP 97.7; O2SAT 98
[2023-01-21 14:59] LABS: INR 1.17; PROTHROMBIN TIME 15.1 SECONDS (12.5-14.5)
[2023-01-21 15:00] LABS: CK-MB VALUE MASS < 1.0 NG/ML (<3.6); PARTIAL THROMBOPLASTIN TIME 33.5 SECONDS (24.8-34.2)
[2023-01-21 15:03] LABS: CPK CREATINE PHOSPHOKINASE 41 U/L (46-171); MB/CK RELATIVE INDEX 2.43 (< OR =4)
[2023-01-21 15:04] LABS: THYROID STIMULATING HORMONE 1.467 uIU/ML (0.55-4.78)
[2023-01-21] MEDS ORDERED: LIDOCAINE 1% MDV 20ML VIAL As Ordered ONE (15:44)
[2023-01-21] MEDS ORDERED: LIDOCAINE 1% MDV 20ML VIAL SC ONE (15:45)
[2023-01-21 16:00] VITALS: BP 109/76; TEMP 98.6; O2SAT 95
[2023-01-21 18:50] VITALS: BP 111/74
[2023-01-21 18:53] VITALS: BP 106/71
[2023-01-21 19:35] VITALS: BP 106/71; TEMP 98.7; O2SAT 97
[2023-01-21] MEDS: risperiDONE 2 MG TAB PO SCH (20:24)
[2023-01-21] MEDS: MIRTAZAPINE 7.5MG PER 1/2 TABLET PO SCH (20:25)
[2023-01-21] MEDS ORDERED: risperiDONE 2 MG TAB PO SCH (21:00)
[2023-01-21] MEDS ORDERED: traZODone 50 MG TAB PO SCH (21:00)
[2023-01-22] VITALS (9 sets, daily range): BP systolic 90–108; BP diastolic 56–69; TEMP 97–98.9; O2SAT 94–98
[2023-01-22] MEDS: NS 1,000 ML IV SCH ×3 (00:10→16:33)
[2023-01-22 05:10] LABS: HEMATOCRIT 37.7 % (42.0-52.0); HEMOGLOBIN 12.8 g/dl (13.5-17.5); MEAN CORPUSCULAR VOLUME 91.3 fl (80.0-96.0); PLATELET COUNT, AUTOMATED 212 10^3/uL (150-450); RED BLOOD COUNT 4.13 10^6/uL (4.30-6.10); WHITE BLOOD COUNT 8.7 10^3/uL (4.0-10.0)
[2023-01-22 05:30] LABS: ALBUMIN 2.8 G/DL (3.2-5.2); ALKALINE PHOSPHATASE 83 U/L (46-116); ALT/SGPT 12 U/L (7.0-40); AST/SGOT 14 U/L (<34); BILIRUBIN,TOTAL 0.7 MG/DL (0.3-1.2); BLOOD UREA NITROGEN 22 MG/DL (9-23); CALCIUM LEVEL 8.6 MG/DL (8.3-10.6); CARBON DIOXIDE LEVEL 24 MMOL/L (20-31); CHLORIDE LEVEL 103 MMOL/L (98-107); CREATININE FOR GFR 1.14 MG/DL (0.70-1.30); GLOMERULAR FILTRATION RATE > 60.0 (>42); GLUCOSE, FASTING 90 MG/DL (74-106); POTASSIUM SERUM 4.4 MMOL/L (3.5-5.1); SODIUM LEVEL 138 MMOL/L (136-145); TOTAL PROTEIN 6.2 G/DL (5.7-8.2)
[2023-01-22] MEDS: risperiDONE 2 MG TAB PO SCH ×2 (08:26→20:10)
[2023-01-22] MEDS ORDERED: SERTRALINE HCL 25 MG TABLET PO SCH (09:00)
[2023-01-22] MEDS ORDERED: risperiDONE 1 MG TAB PO SCH (09:00)
[2023-01-22] MEDS ORDERED: SERTRALINE HCL 50 MG TAB PO SCH (09:00)
[2023-01-22] MEDS: MIRTAZAPINE 7.5MG PER 1/2 TABLET PO SCH (20:10)
[2023-01-23] MEDS: NS 1,000 ML IV SCH (01:13)
[2023-01-23 03:42] VITALS: BP 109/63; TEMP 97.2; O2SAT 94
[2023-01-23 05:24] LABS: HEMOGLOBIN 13.3 g/dl (13.5-17.5); MEAN CORPUSCULAR HGB CONC 34.1 g/dl (32.0-36.5); MEAN CORPUSCULAR VOLUME 90.9 fl (80.0-96.0); PLATELET COUNT, AUTOMATED 202 10^3/uL (150-450); RED BLOOD COUNT 4.29 10^6/uL (4.30-6.10); WHITE BLOOD COUNT 8.4 10^3/uL (4.0-10.0)
[2023-01-23 05:46] LABS: ALBUMIN 2.6 G/DL (3.2-5.2); ALKALINE PHOSPHATASE 83 U/L (46-116); ALT/SGPT 12 U/L (7.0-40); AST/SGOT 12 U/L (<34); BILIRUBIN,TOTAL 0.6 MG/DL (0.3-1.2); BLOOD UREA NITROGEN 21 MG/DL (9-23); CALCIUM LEVEL 8.2 MG/DL (8.3-10.6); CARBON DIOXIDE LEVEL 21 MMOL/L (20-31); CHLORIDE LEVEL 106 MMOL/L (98-107); CREATININE FOR GFR 0.91 MG/DL (0.70-1.30); GLOMERULAR FILTRATION RATE > 60.0 (>42); GLUCOSE, FASTING 93 MG/DL (74-106); POTASSIUM SERUM 4.4 MMOL/L (3.5-5.1); SODIUM LEVEL 138 MMOL/L (136-145); TOTAL PROTEIN 6.1 G/DL (5.7-8.2)
[2023-01-23 07:46] VITALS: BP 100/59; TEMP 98.6; O2SAT 95
[2023-01-23] MEDS ORDERED: MIDODRINE 5 MG TAB PO SCH (08:00)
[2023-01-23] MEDS: risperiDONE 2 MG TAB PO SCH (08:10)
[2023-01-23] MEDS ORDERED: MIDO5TA PO (11:49)
[2023-01-23] MEDS ORDERED: ACET1TAB55 PO (11:49)
== END 2023-01-23 13:11 | DRG 312 ==
LOC: M PCU 13:52
PROVIDERS: ADMIT Internal Medicine; ATTEND Internal Medicine
PROC: B246ZZZ Ultrasonography of Right and Left Heart (ICD-10-PCS; principal; 2023-01-21)
DX: R55 Syncope and collapse (principal); F32.3 Major depressive disorder, single episode, severe with psychotic features; E02 Subclinical iodine-deficiency hypothyroidism; I95.9 Hypotension, unspecified; S01.81XA Laceration without foreign body of other part of head, initial encounter; W18.30XA Fall on same level, unspecified, initial encounter; Y93.9 Activity, unspecified; Y92.238 Other place in hospital as the place of occurrence of the external cause; Z79.899 Other long term (current) drug therapy; J30.1 Allergic rhinitis due to pollen; Y99.8 Other external cause status

== ENCOUNTER 2023-01-24 13:32 | Inpatient (IN) | payer MEDICARE, MEDICAID ==
[2023-01-24] VITALS (56 sets, daily range): BP systolic 80–133; BP diastolic 51–82; TEMP 94.5–97; O2SAT 84–100
[~2023-01-24] VITALS: Ht 175.3 cm; Wt 65.5 kg
[2023-01-24] MEDS: CISATRACURIUM 200 MG in NS 480 ML IV SCH ×2 (09:00→18:39)
[~2023-01-24 13:32] MED LIST changes: +ACET1TAB55 PO; +MIDO5TA PO; +MIRT-10 PO
[2023-01-24] MEDS ORDERED: EPINEPHrine INJ 1 MG/ML 1ML AMP As Ordered ONE (13:44)
[2023-01-24] MEDS: NOREPINEPHRINE 4MG IN D5 250ML 4 MG in IV 1 EA IV SCH ×4 (14:00→17:30)
[2023-01-24 14:12] LABS: ABG BASE EXCESS -14.1 (-2.0-2.0); ABG HCO3 17.5 MMOL/L (22.0-26.0); ABG PARTIAL PRESSURE O2 260.7 mmHg (75.0-100.0); ABG STANDARD HCO3 13.9 MMOL/L. (22.0-26.0); ABG TOTAL CO2 19.6 MMOL/L (23.0-31.0)
[2023-01-24 14:14] LABS: ABG PARTIAL PRESSURE CO2 66.6 mmHg (35.0-45.0); ABG pH (ARTERIAL) 7.038 UNITS (7.350-7.450)
[2023-01-24] MEDS ORDERED: ACETAMINOPHEN 650MG SUPP PR PRN (15:15)
[2023-01-24] MEDS ORDERED: MIDAZOLAM INJ 2MG/2ML VIAL IV PRN (15:15)
[2023-01-24] MEDS ORDERED: ACETAMINOPHEN 650MG SUPP PR ONE (15:15)
[2023-01-24] MEDS ORDERED: LACRILUBE (AKWA TEARS) OPHTH OINT 3.5GM OU PRN (15:15)
[2023-01-24] MEDS: LACRILUBE (AKWA TEARS) OPHTH OINT 3.5GM OU SCH ×2 (16:00→20:27)
[2023-01-24 16:01] LABS: BASO # 0.1 10^3/uL (0.0-0.2); BASO % 0.4 % (0.0-1.0); EOS # 0.1 10^3/uL (0.0-0.5); EOS % 0.7 % (0.0-3.0); HEMATOCRIT 36.8 % (42.0-52.0); HEMOGLOBIN 12.5 g/dl (13.5-17.5); LYMPH # 1.1 10^3/uL (1.5-5.0); LYMPH % 5.6 % (24.0-44.0); MEAN CORPUSCULAR HEMOGLOBIN 31.4 pg (27.0-33.0); MEAN CORPUSCULAR VOLUME 92.5 fl (80.0-96.0); MONO # 0.7 10^3/uL (0.0-0.8); MONO % 3.3 % (2.0-8.0); NEUTROPHILS # 17.3 10^3/uL (1.5-8.5); PLATELET COUNT, AUTOMATED 238 10^3/uL (150-450); RED BLOOD COUNT 3.98 10^6/uL (4.30-6.10); WHITE BLOOD COUNT 19.9 10^3/uL (4.0-10.0)
[2023-01-24 16:05] LABS: ABG BASE EXCESS -6.2 (-2.0-2.0); ABG O2 SATURATION 99.1 % (95.0-99.0); ABG PARTIAL PRESSURE CO2 34.6 mmHg (35.0-45.0); ABG PARTIAL PRESSURE O2 240.3 mmHg (75.0-100.0); ABG STANDARD HCO3 19.4 MMOL/L. (22.0-26.0); ABG TOTAL CO2 20.1 MMOL/L (23.0-31.0); ABG pH (ARTERIAL) 7.351 UNITS (7.350-7.450)
[2023-01-24] MEDS: propofoL 1,000 MG in IV 1 EA IV SCH ×2 (16:08→22:32)
[2023-01-24 16:15] LABS: INR 1.49; PROTHROMBIN TIME 17.6 SECONDS (12.5-14.5)
[2023-01-24 16:32] LABS: CK-MB VALUE MASS 10.7 NG/ML (<3.6)
[2023-01-24 16:33] LABS: LIPASE 42 U/L (12-53)
[2023-01-24 16:34] LABS: AMYLASE 138 U/L (30-118)
[2023-01-24 16:38] LABS: ALBUMIN 2.6 G/DL (3.2-5.2); ALKALINE PHOSPHATASE 156 U/L (46-116); ALT/SGPT 362 U/L (7.0-40); AST/SGOT 446 U/L (<34); BILIRUBIN,TOTAL 0.8 MG/DL (0.3-1.2); BLOOD UREA NITROGEN 16 MG/DL (9-23); CALCIUM LEVEL 7.6 MG/DL (8.3-10.6); CARBON DIOXIDE LEVEL 24 MMOL/L (20-31); CHLORIDE LEVEL 103 MMOL/L (98-107); CREATININE FOR GFR 1.05 MG/DL (0.70-1.30); GLOMERULAR FILTRATION RATE > 60.0 (>42); GLUCOSE, FASTING 351 MG/DL (74-106); MAGNESIUM LEVEL 1.9 MG/DL (1.8-2.4); PHOSPHORUS LEVEL 5.6 MG/DL (2.4-5.1); POTASSIUM SERUM 3.8 MMOL/L (3.5-5.1); SODIUM LEVEL 136 MMOL/L (136-145); TOTAL PROTEIN 5.9 G/DL (5.7-8.2)
[2023-01-24 16:43] LABS: CPK CREATINE PHOSPHOKINASE 377 U/L (46-171); MB/CK RELATIVE INDEX 2.83 (< OR =4)
[2023-01-24 16:46] LABS: D-DIMER QUANT > 20.00 ug/mL (<0.5)
[2023-01-24] MEDS: PIPERACILLIN/TAZOBACTAM SOD 4.5 GM in D5W MINI-BAG PLUS 50 ML IV SCH (18:33)
[2023-01-24 19:50] LABS: ABG BASE EXCESS -2.9 (-2.0-2.0); ABG HCO3 20.8 MMOL/L (22.0-26.0); ABG O2 SATURATION 99.6 % (95.0-99.0); ABG PARTIAL PRESSURE CO2 33.1 mmHg (35.0-45.0); ABG PARTIAL PRESSURE O2 451.6 mmHg (75.0-100.0); ABG STANDARD HCO3 22.1 MMOL/L. (22.0-26.0); ABG TOTAL CO2 21.8 MMOL/L (23.0-31.0); ABG pH (ARTERIAL) 7.416 UNITS (7.350-7.450)
[2023-01-24] MEDS ORDERED: VANCOMYCIN HCL 750 MG, VIAL MATE ADAPTER 1 EACH in D5W 250 ML IV ONE (20:00)
[2023-01-24] MEDS ORDERED: FENTANYL REMOVAL DOCUMENTATION MISC XX SCH (20:15)
[2023-01-24 20:26] LABS: HEMATOCRIT 37.4 % (42.0-52.0); HEMOGLOBIN 12.8 g/dl (13.5-17.5); MEAN CORPUSCULAR HEMOGLOBIN 31.2 pg (27.0-33.0); MEAN CORPUSCULAR HGB CONC 34.2 g/dl (32.0-36.5); MEAN CORPUSCULAR VOLUME 91.2 fl (80.0-96.0); PLATELET COUNT, AUTOMATED 210 10^3/uL (150-450)
[2023-01-24] MEDS: HEPARIN SOD (PORCINE) 5000UNITS/ML 1ML VIAL/SYRINGE SC SCH (20:27)
[2023-01-24 20:40] LABS: INR 1.35; PROTHROMBIN TIME 16.3 SECONDS (12.5-14.5)
[2023-01-24] MEDS ORDERED: fentaNYL 100 MCG/2 ML INJECTION IV PRN (20:40)
[2023-01-24 20:41] LABS: PARTIAL THROMBOPLASTIN TIME 35.3 SECONDS (24.8-34.2)
[2023-01-24] MEDS ORDERED: VANCOMYCIN HCL 500 MG in D5W MINI-BAG PLUS 100 ML IV ONE (21:00)
[2023-01-24 22:05] LABS: ALBUMIN 2.6 G/DL (3.2-5.2); ALKALINE PHOSPHATASE 153 U/L (46-116); ALT/SGPT 358 U/L (7.0-40); AST/SGOT 402 U/L (<34); BILIRUBIN,TOTAL 1.1 MG/DL (0.3-1.2); BLOOD UREA NITROGEN 19 MG/DL (9-23); CALCIUM LEVEL 7.7 MG/DL (8.3-10.6); CARBON DIOXIDE LEVEL 23 MMOL/L (20-31); CHLORIDE LEVEL 104 MMOL/L (98-107); CPK CREATINE PHOSPHOKINASE 895 U/L (46-171); CREATININE FOR GFR 1.06 MG/DL (0.70-1.30); GLOMERULAR FILTRATION RATE > 60.0 (>42); GLUCOSE, FASTING 189 MG/DL (74-106); MAGNESIUM LEVEL 1.8 MG/DL (1.8-2.4); MB/CK RELATIVE INDEX 1.45 (< OR =4); PHOSPHORUS LEVEL 4.1 MG/DL (2.4-5.1); POTASSIUM SERUM 3.9 MMOL/L (3.5-5.1); SODIUM LEVEL 136 MMOL/L (136-145); TOTAL PROTEIN 5.8 G/DL (5.7-8.2)
[2023-01-24] MEDS ORDERED: FENTANYL DRIP LOCK BOX KEY 1 EACH XX PRN (22:45)
[2023-01-24] MEDS: fentaNYL CITRATE/NaCl 1,000 MCG in IV 1 EA IV SCH (23:11)
[2023-01-24 23:56] LABS: ABG BASE EXCESS -1.6 (-2.0-2.0); ABG HCO3 21.6 MMOL/L (22.0-26.0); ABG O2 SATURATION 98.9 % (95.0-99.0); ABG PARTIAL PRESSURE CO2 31.8 mmHg (35.0-45.0); ABG PARTIAL PRESSURE O2 181.9 mmHg (75.0-100.0); ABG STANDARD HCO3 23.2 MMOL/L. (22.0-26.0); ABG TOTAL CO2 22.5 MMOL/L (23.0-31.0); ABG pH (ARTERIAL) 7.449 UNITS (7.350-7.450)
[2023-01-25] VITALS (83 sets, daily range): BP systolic 81–123; BP diastolic 51–78; TEMP 94.5–98.6; O2SAT 94–100
[2023-01-25 00:28] LABS: INR 1.32; PARTIAL THROMBOPLASTIN TIME 34.2 SECONDS (24.8-34.2)
[2023-01-25 00:29] LABS: HEMATOCRIT 35.3 % (42.0-52.0); HEMOGLOBIN 12.2 g/dl (13.5-17.5); MEAN CORPUSCULAR HEMOGLOBIN 31.4 pg (27.0-33.0); MEAN CORPUSCULAR HGB CONC 34.6 g/dl (32.0-36.5); MEAN CORPUSCULAR VOLUME 90.7 fl (80.0-96.0); PLATELET COUNT, AUTOMATED 205 10^3/uL (150-450); RED BLOOD COUNT 3.89 10^6/uL (4.30-6.10)
[2023-01-25 01:08] LABS: ALBUMIN 2.4 G/DL (3.2-5.2); ALKALINE PHOSPHATASE 140 U/L (46-116); ALT/SGPT 316 U/L (7.0-40); AST/SGOT 281 U/L (<34); BILIRUBIN,TOTAL 0.7 MG/DL (0.3-1.2); BLOOD UREA NITROGEN 18 MG/DL (9-23); CALCIUM LEVEL 7.7 MG/DL (8.3-10.6); CARBON DIOXIDE LEVEL 25 MMOL/L (20-31); CHLORIDE LEVEL 104 MMOL/L (98-107); CREATININE FOR GFR 1.06 MG/DL (0.70-1.30); GLOMERULAR FILTRATION RATE > 60.0 (>42); GLUCOSE, FASTING 169 MG/DL (74-106); MAGNESIUM LEVEL 1.7 MG/DL (1.8-2.4); PHOSPHORUS LEVEL 3.6 MG/DL (2.4-5.1); SODIUM LEVEL 138 MMOL/L (136-145); TOTAL PROTEIN 5.5 G/DL (5.7-8.2)
[2023-01-25] MEDS: PIPERACILLIN/TAZOBACTAM SOD 4.5 GM in D5W MINI-BAG PLUS 50 ML IV SCH ×3 (01:11→18:48)
[2023-01-25] MEDS: NOREPINEPHRINE 4MG IN D5 250ML 4 MG in IV 1 EA IV SCH ×8 (01:44→23:37)
[2023-01-25] MEDS: CISATRACURIUM 200 MG in NS 480 ML IV SCH ×4 (02:02→15:50)
[2023-01-25] MEDS: MAG SULF 1GM/100ML (MAG RUN) 100 ML IV SCH ×2 (02:21→03:38)
[2023-01-25 03:56] LABS: ABG BASE EXCESS -4.2 (-2.0-2.0); ABG HCO3 18.4 MMOL/L (22.0-26.0); ABG O2 SATURATION 98.7 % (95.0-99.0); ABG PARTIAL PRESSURE CO2 26.9 mmHg (35.0-45.0); ABG STANDARD HCO3 21.1 MMOL/L. (22.0-26.0); ABG TOTAL CO2 19.2 MMOL/L (23.0-31.0); ABG pH (ARTERIAL) 7.453 UNITS (7.350-7.450)
[2023-01-25] MEDS ORDERED: VANCOMYCIN HCL 1,000 MG, VIAL MATE ADAPTER 1 EACH in D5W 250 ML IV SCH (04:00)
[2023-01-25 04:11] LABS: INR 1.34; PROTHROMBIN TIME 16.2 SECONDS (12.5-14.5)
[2023-01-25 04:12] LABS: PARTIAL THROMBOPLASTIN TIME 33.4 SECONDS (24.8-34.2)
[2023-01-25] MEDS: propofoL 1,000 MG in IV 1 EA IV SCH ×2 (06:26→12:43)
[2023-01-25 06:46] LABS: ALBUMIN 2.4 G/DL (3.2-5.2); ALKALINE PHOSPHATASE 133 U/L (46-116); ALT/SGPT 286 U/L (7.0-40); AST/SGOT 213 U/L (<34); BILIRUBIN,TOTAL 0.7 MG/DL (0.3-1.2); BLOOD UREA NITROGEN 17 MG/DL (9-23); CALCIUM LEVEL 7.6 MG/DL (8.3-10.6); CARBON DIOXIDE LEVEL 24 MMOL/L (20-31); CHLORIDE LEVEL 104 MMOL/L (98-107); GLOMERULAR FILTRATION RATE > 60.0 (>42); GLUCOSE, FASTING 163 MG/DL (74-106); MAGNESIUM LEVEL 2.4 MG/DL (1.8-2.4); PHOSPHORUS LEVEL 3.7 MG/DL (2.4-5.1); POTASSIUM SERUM 3.9 MMOL/L (3.5-5.1); SODIUM LEVEL 139 MMOL/L (136-145); TOTAL PROTEIN 5.3 G/DL (5.7-8.2)
[2023-01-25 07:19] LABS: ABG BASE EXCESS -3.5 (-2.0-2.0); ABG HCO3 21.1 MMOL/L (22.0-26.0); ABG O2 SATURATION 96.8 % (95.0-99.0); ABG PARTIAL PRESSURE CO2 34.1 mmHg (35.0-45.0); ABG PARTIAL PRESSURE O2 84.8 mmHg (75.0-100.0); ABG STANDARD HCO3 21.6 MMOL/L. (22.0-26.0); ABG TOTAL CO2 22.2 MMOL/L (23.0-31.0); ABG pH (ARTERIAL) 7.403 UNITS (7.350-7.450)
[2023-01-25 07:54] LABS: HEMATOCRIT 34.1 % (42.0-52.0); HEMOGLOBIN 11.8 g/dl (13.5-17.5); MEAN CORPUSCULAR HEMOGLOBIN 31.5 pg (27.0-33.0); MEAN CORPUSCULAR HGB CONC 34.6 g/dl (32.0-36.5); MEAN CORPUSCULAR VOLUME 90.9 fl (80.0-96.0); PLATELET COUNT, AUTOMATED 189 10^3/uL (150-450); RED BLOOD COUNT 3.75 10^6/uL (4.30-6.10); WHITE BLOOD COUNT 13.3 10^3/uL (4.0-10.0)
[2023-01-25 08:21] LABS: ALBUMIN 2.4 G/DL (3.2-5.2); ALKALINE PHOSPHATASE 127 U/L (46-116); ALT/SGPT 251 U/L (7.0-40); AST/SGOT 166 U/L (<34); BILIRUBIN,TOTAL 0.6 MG/DL (0.3-1.2); BLOOD UREA NITROGEN 14 MG/DL (9-23); CALCIUM LEVEL 7.5 MG/DL (8.3-10.6); CARBON DIOXIDE LEVEL 25 MMOL/L (20-31); CHLORIDE LEVEL 103 MMOL/L (98-107); GLOMERULAR FILTRATION RATE > 60.0 (>42); GLUCOSE, FASTING 129 MG/DL (74-106); MAGNESIUM LEVEL 2.4 MG/DL (1.8-2.4); PHOSPHORUS LEVEL 3.6 MG/DL (2.4-5.1); POTASSIUM SERUM 3.4 MMOL/L (3.5-5.1); SODIUM LEVEL 136 MMOL/L (136-145); TOTAL PROTEIN 5.6 G/DL (5.7-8.2)
[2023-01-25 08:22] LABS: INR 1.32
[2023-01-25] MEDS: PANTOPRAZOLE 40MG VIAL IV SCH (09:45)
[2023-01-25] MEDS: HEPARIN SOD (PORCINE) 5000UNITS/ML 1ML VIAL/SYRINGE SC SCH ×2 (09:46→20:26)
[2023-01-25] MEDS: LACRILUBE (AKWA TEARS) OPHTH OINT 3.5GM OU SCH ×3 (09:46→20:26)
[2023-01-25 12:03] LABS: HEMATOCRIT 33.4 % (42.0-52.0); HEMOGLOBIN 11.6 g/dl (13.5-17.5); MEAN CORPUSCULAR HEMOGLOBIN 31.4 pg (27.0-33.0); MEAN CORPUSCULAR HGB CONC 34.7 g/dl (32.0-36.5); MEAN CORPUSCULAR VOLUME 90.3 fl (80.0-96.0); PLATELET COUNT, AUTOMATED 179 10^3/uL (150-450); WHITE BLOOD COUNT 12.5 10^3/uL (4.0-10.0)
[2023-01-25 12:14] LABS: INR 1.32; PROTHROMBIN TIME 16.1 SECONDS (12.5-14.5)
[2023-01-25 12:14] LABS: ABG BASE EXCESS -2.3 (-2.0-2.0); ABG HCO3 21.9 MMOL/L (22.0-26.0); ABG O2 SATURATION 95.9 % (95.0-99.0); ABG PARTIAL PRESSURE CO2 33.5 mmHg (35.0-45.0); ABG PARTIAL PRESSURE O2 74.2 mmHg (75.0-100.0); ABG STANDARD HCO3 22.5 MMOL/L. (22.0-26.0); ABG pH (ARTERIAL) 7.428 UNITS (7.350-7.450)
[2023-01-25 12:15] LABS: PARTIAL THROMBOPLASTIN TIME 34.4 SECONDS (24.8-34.2)
[2023-01-25 12:24] LABS: ALBUMIN 2.4 G/DL (3.2-5.2); ALKALINE PHOSPHATASE 122 U/L (46-116); ALT/SGPT 232 U/L (7.0-40); AST/SGOT 141 U/L (<34); BILIRUBIN,TOTAL 0.6 MG/DL (0.3-1.2); BLOOD UREA NITROGEN 12 MG/DL (9-23); CALCIUM LEVEL 7.5 MG/DL (8.3-10.6); CARBON DIOXIDE LEVEL 25 MMOL/L (20-31); CHLORIDE LEVEL 106 MMOL/L (98-107); GLOMERULAR FILTRATION RATE > 60.0 (>42); GLUCOSE, FASTING 116 MG/DL (74-106); MAGNESIUM LEVEL 2.4 MG/DL (1.8-2.4); PHOSPHORUS LEVEL 4.1 MG/DL (2.4-5.1); POTASSIUM SERUM 3.7 MMOL/L (3.5-5.1); SODIUM LEVEL 140 MMOL/L (136-145); TOTAL PROTEIN 5.4 G/DL (5.7-8.2)
[2023-01-25 12:45] LABS: PROCALCITONIN 11.17 ng/ml
[2023-01-25] MEDS: fentaNYL CITRATE/NaCl 1,000 MCG in IV 1 EA IV SCH ×2 (15:25→22:55)
[2023-01-25 16:38] LABS: ALBUMIN 2.3 G/DL (3.2-5.2); ALKALINE PHOSPHATASE 121 U/L (46-116); ALT/SGPT 210 U/L (7.0-40); AST/SGOT 116 U/L (<34); BILIRUBIN,TOTAL 0.6 MG/DL (0.3-1.2); BLOOD UREA NITROGEN 13 MG/DL (9-23); CALCIUM LEVEL 7.6 MG/DL (8.3-10.6); CARBON DIOXIDE LEVEL 24 MMOL/L (20-31); CHLORIDE LEVEL 105 MMOL/L (98-107); CREATININE FOR GFR 1.04 MG/DL (0.70-1.30); GLOMERULAR FILTRATION RATE > 60.0 (>42); GLUCOSE, FASTING 106 MG/DL (74-106); MAGNESIUM LEVEL 2.3 MG/DL (1.8-2.4); PHOSPHORUS LEVEL 3.9 MG/DL (2.4-5.1); POTASSIUM SERUM 3.6 MMOL/L (3.5-5.1); SODIUM LEVEL 137 MMOL/L (136-145); TOTAL PROTEIN 5.5 G/DL (5.7-8.2)
[2023-01-25] MEDS: VANCOMYCIN HCL 500 MG in D5W MINI-BAG PLUS 100 ML IV SCH (17:23)
[2023-01-25] MEDS: VANCOMYCIN HCL 750 MG, VIAL MATE ADAPTER 1 EACH in D5W 250 ML IV SCH (17:23)
[2023-01-25] MEDS: INSULIN LISPRO (NovoLOG) PER UNIT SC SCH ×2 (18:00→23:36)
[2023-01-25 20:03] LABS: HEMATOCRIT 32.3 % (42.0-52.0); MEAN CORPUSCULAR HEMOGLOBIN 31.2 pg (27.0-33.0); MEAN CORPUSCULAR HGB CONC 34.1 g/dl (32.0-36.5); MEAN CORPUSCULAR VOLUME 91.5 fl (80.0-96.0); PLATELET COUNT, AUTOMATED 173 10^3/uL (150-450); RED BLOOD COUNT 3.53 10^6/uL (4.30-6.10)
[2023-01-25 20:28] LABS: ALBUMIN 2.3 G/DL (3.2-5.2); ALKALINE PHOSPHATASE 117 U/L (46-116); ALT/SGPT 193 U/L (7.0-40); AST/SGOT 99 U/L (<34); BILIRUBIN,TOTAL 0.5 MG/DL (0.3-1.2); BLOOD UREA NITROGEN 12 MG/DL (9-23); CALCIUM LEVEL 7.6 MG/DL (8.3-10.6); CARBON DIOXIDE LEVEL 24 MMOL/L (20-31); CHLORIDE LEVEL 105 MMOL/L (98-107); CREATININE FOR GFR 1.15 MG/DL (0.70-1.30); GLOMERULAR FILTRATION RATE > 60.0 (>42); GLUCOSE, FASTING 129 MG/DL (74-106); MAGNESIUM LEVEL 2.3 MG/DL (1.8-2.4); PHOSPHORUS LEVEL 3.5 MG/DL (2.4-5.1); POTASSIUM SERUM 3.9 MMOL/L (3.5-5.1); SODIUM LEVEL 136 MMOL/L (136-145); TOTAL PROTEIN 5.5 G/DL (5.7-8.2)
[2023-01-25 23:45] LABS: HEMATOCRIT 33.6 % (42.0-52.0); HEMOGLOBIN 11.4 g/dl (13.5-17.5); MEAN CORPUSCULAR HEMOGLOBIN 31.1 pg (27.0-33.0); MEAN CORPUSCULAR HGB CONC 33.9 g/dl (32.0-36.5); MEAN CORPUSCULAR VOLUME 91.6 fl (80.0-96.0); PLATELET COUNT, AUTOMATED 190 10^3/uL (150-450); RED BLOOD COUNT 3.67 10^6/uL (4.30-6.10)
[2023-01-26] VITALS (32 sets, daily range): BP systolic 81–117; BP diastolic 51–71; TEMP 97.5–101; O2SAT 88–100
[2023-01-26 00:10] LABS: MAGNESIUM LEVEL 2.2 MG/DL (1.8-2.4); PHOSPHORUS LEVEL 3.8 MG/DL (2.4-5.1)
[2023-01-26] MEDS: PIPERACILLIN/TAZOBACTAM SOD 4.5 GM in D5W MINI-BAG PLUS 50 ML IV SCH ×3 (01:07→18:40)
[2023-01-26 03:57] LABS: HEMOGLOBIN 10.9 g/dl (13.5-17.5); MEAN CORPUSCULAR HEMOGLOBIN 31.1 pg (27.0-33.0); MEAN CORPUSCULAR HGB CONC 34.1 g/dl (32.0-36.5); MEAN CORPUSCULAR VOLUME 91.4 fl (80.0-96.0); PLATELET COUNT, AUTOMATED 184 10^3/uL (150-450); WHITE BLOOD COUNT 11.6 10^3/uL (4.0-10.0)
[2023-01-26 04:20] LABS: ALBUMIN 2.4 G/DL (3.2-5.2); ALKALINE PHOSPHATASE 113 U/L (46-116); ALT/SGPT 181 U/L (7.0-40); AST/SGOT 91 U/L (<34); BILIRUBIN,TOTAL 0.6 MG/DL (0.3-1.2); BLOOD UREA NITROGEN 10 MG/DL (9-23); CALCIUM LEVEL 7.9 MG/DL (8.3-10.6); CARBON DIOXIDE LEVEL 25 MMOL/L (20-31); CHLORIDE LEVEL 104 MMOL/L (98-107); CREATININE FOR GFR 1.23 MG/DL (0.70-1.30); GLOMERULAR FILTRATION RATE > 60.0 (>42); GLUCOSE, FASTING 94 MG/DL (74-106); MAGNESIUM LEVEL 2.2 MG/DL (1.8-2.4); PHOSPHORUS LEVEL 3.9 MG/DL (2.4-5.1); POTASSIUM SERUM 3.9 MMOL/L (3.5-5.1); SODIUM LEVEL 137 MMOL/L (136-145); TOTAL PROTEIN 5.5 G/DL (5.7-8.2)
[2023-01-26] MEDS ORDERED: DEXTROSE 50% 50ML SYRINGE IV PRN (05:30)
[2023-01-26] MEDS ORDERED: GLUCOSE 4GM CHEW TABLET PO PRN (05:30)
[2023-01-26] MEDS ORDERED: GLUCAGON INJ 1MG VIAL SC PRN (05:30)
[2023-01-26] MEDS ORDERED: D5W/0.9% SODIUM CHLORIDE 1,000 ML IV SCH (05:30)
[2023-01-26] MEDS: INSULIN LISPRO (NovoLOG) PER UNIT SC SCH ×3 (05:33→18:00)
[2023-01-26] MEDS: NOREPINEPHRINE 4MG IN D5 250ML 4 MG in IV 1 EA IV SCH ×6 (05:52→19:20)
[2023-01-26 08:29] LABS: ABG BASE EXCESS -3.3 (-2.0-2.0); ABG HCO3 20.2 MMOL/L (22.0-26.0); ABG O2 SATURATION 94.7 % (95.0-99.0); ABG PARTIAL PRESSURE CO2 31.3 mmHg (35.0-45.0); ABG PARTIAL PRESSURE O2 69.4 mmHg (75.0-100.0); ABG STANDARD HCO3 21.7 MMOL/L. (22.0-26.0); ABG TOTAL CO2 21.2 MMOL/L (23.0-31.0); ABG pH (ARTERIAL) 7.428 UNITS (7.350-7.450)
[2023-01-26] MEDS: HEPARIN SOD (PORCINE) 5000UNITS/ML 1ML VIAL/SYRINGE SC SCH ×2 (08:46→20:46)
[2023-01-26] MEDS: PANTOPRAZOLE 40MG VIAL IV SCH (08:46)
[2023-01-26] MEDS: LACRILUBE (AKWA TEARS) OPHTH OINT 3.5GM OU SCH ×2 (09:00→16:00)
[2023-01-26 11:18] LABS: ABG BASE EXCESS -4.1 (-2.0-2.0); ABG HCO3 18.7 MMOL/L (22.0-26.0); ABG O2 SATURATION 96.1 % (95.0-99.0); ABG PARTIAL PRESSURE CO2 27.2 mmHg (35.0-45.0); ABG PARTIAL PRESSURE O2 79.8 mmHg (75.0-100.0); ABG TOTAL CO2 19.5 MMOL/L (23.0-31.0); ABG pH (ARTERIAL) 7.454 UNITS (7.350-7.450)
[2023-01-26] MEDS: VANCOMYCIN HCL 750 MG, VIAL MATE ADAPTER 1 EACH in D5W 250 ML IV SCH (16:33)
[2023-01-26] MEDS: ASPIRIN 300 MG SUPP PR SCH (16:38)
[2023-01-26] MEDS: VANCOMYCIN HCL 500 MG in D5W MINI-BAG PLUS 100 ML IV SCH (18:09)
[2023-01-27] VITALS (7 sets, daily range): BP systolic 88–104; BP diastolic 55–62; TEMP 98.5–99.9; O2SAT 91–100
[2023-01-27] MEDS: NOREPINEPHRINE 4MG IN D5 250ML 4 MG in IV 1 EA IV SCH ×4 (01:34→08:40)
[2023-01-27] MEDS: PIPERACILLIN/TAZOBACTAM SOD 4.5 GM in D5W MINI-BAG PLUS 50 ML IV SCH ×2 (01:40→10:00)
[2023-01-27] MEDS: INSULIN LISPRO (NovoLOG) PER UNIT SC SCH ×2 (05:44)
[2023-01-27 08:03] LABS: HEMATOCRIT 27.8 % (42.0-52.0); HEMOGLOBIN 9.4 g/dl (13.5-17.5); MEAN CORPUSCULAR HEMOGLOBIN 30.9 pg (27.0-33.0); MEAN CORPUSCULAR HGB CONC 33.8 g/dl (32.0-36.5); MEAN CORPUSCULAR VOLUME 91.4 fl (80.0-96.0); PLATELET COUNT, AUTOMATED 208 10^3/uL (150-450); RED BLOOD COUNT 3.04 10^6/uL (4.30-6.10); WHITE BLOOD COUNT 10.8 10^3/uL (4.0-10.0)
[2023-01-27 08:39] LABS: ALBUMIN 2.1 G/DL (3.2-5.2); CREATININE FOR GFR 1.43 MG/DL (0.70-1.30); GLOMERULAR FILTRATION RATE 51.3 (>42); POTASSIUM SERUM 3.6 MMOL/L (3.5-5.1)
[2023-01-27] MEDS: HEPARIN SOD (PORCINE) 5000UNITS/ML 1ML VIAL/SYRINGE SC SCH (09:00)
[2023-01-27] MEDS ORDERED: TAMSULOSIN 0.4 MG CAP PO SCH (09:00)
[2023-01-27] MEDS: PANTOPRAZOLE 40MG VIAL IV SCH (11:05)
[2023-01-27] MEDS: ASPIRIN 300 MG SUPP PR SCH (11:05)
== END 2023-01-27 12:43 | disposition short-term general hospital (02) | DRG 296 ==
LOC: M ICU 13:32
PROVIDERS: ADMIT Internal Medicine Critical Care Medicine; ATTEND Internal Medicine Critical Care Medicine
PROC: 5A1945Z Respiratory Ventilation, 24-96 Consecutive Hours (ICD-10-PCS; 2023-01-24)
PROC: B246ZZZ Ultrasonography of Right and Left Heart (ICD-10-PCS; principal; 2023-01-26)
DX: I46.9 Cardiac arrest, cause unspecified (principal); J96.01 Acute respiratory failure with hypoxia; J96.02 Acute respiratory failure with hypercapnia; J69.0 Pneumonitis due to inhalation of food and vomit; F32.3 Major depressive disorder, single episode, severe with psychotic features; E02 Subclinical iodine-deficiency hypothyroidism; I27.20 Pulmonary hypertension, unspecified; F22 Delusional disorders; Z56.0 Unemployment, unspecified; Z79.899 Other long term (current) drug therapy